=== PATIENT | male | born 1970 | race Caucasian/White ===

== ENCOUNTER 2016-08-28 18:16 | Emergency (ER) | payer MEDICARE ==
--- NOTE | 2016-08-28 18:48 | ERPHSYRPT ---
- History of Present Illness Time Seen by Provider: 08/28/16 18:41 Source: patient, family (n) Exam Limitations: no limitations Patient Subjective Stated Complaint: patient knee having pains where screws were placed has black area raising up looks like screw trying to come out according to patient Triage Nursing Assessment: patietn alert and oriented bruisuing and raised area about nickel size on right knee some swelling noted as well pedal pulses present cap refill immediate Physician History: Pt. had R patellea fx in 11/18 and had screws/wires placed at [facility]. Have had another incident when pt. reinjured R knee and surgery to repair ligament. Past 3-4 days noticed bump to R knee with sharp pain, constant, that is worse with movement or weight bearing. No numbness or tingling distally. No trauma or injury to R knee or leg. Tylenol with minimal relief. 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 Method of Injury: unknown Occurred: days ago (4-5) Quality: constant, burning, throbbing Severity of Pain-Max: moderate Severity of Pain-Current: moderate Lower Extremities Pain: knee: right (bruising noted on R knee) Modifying Factors: Improves With: immobilization (improves), movement (worsens) Associated Symptoms: unable to bear weight Allergies/Adverse Reactions: No Known Drug Allergies Allergy (Verified 05/10/16 14:25) Home Medications: Amlodipine Besylate 5 mg PO DAILY 12/05/14 [History] Aspirin 81 mg PO DAILY 12/05/14 [History] Albuterol Sulfate [Proair Hfa] 1 - 2 puffs IH Q4-6HPRN PRN 11/11/15 [History] Atorvastatin Calcium 80 mg PO DAILY 11/11/15 [History] Bumetanide 1 mg [Bumex 1 mg] 1 mg PO DAILY PRN PRN 11/11/15 [History] Fluoxetine HCl 40 mg PO DAILY 11/11/15 [History] Gabapentin 800 mg PO TID 11/11/15 [History] Hydrochlorothiazide 12.5 mg PO DAILY 11/11/15 [History] Metformin HCl 500 mg [Glucophage 500 MG] 500 mg PO BID 11/11/15 [History] Nitroglycerin 0.4 mg Tablet [Nitrostat 0.4 MG Tablet] 0.4 mg SL UD PRN 01/18 [History] Hx Tetanus, Diphtheria Vaccination/Date Given: Yes Hx Influenza Vaccination/Date Given: Yes Hx Pneumococcal Vaccination/Date Given: Yes Immunizations Up to Date: Yes - Review of Systems Constitutional: No Fever, No Chills Eyes: No Symptoms Ears, Nose, & Throat: No Symptoms Respiratory: No Cough, No Dyspnea Cardiac: No Chest Pain, No Edema, No Syncope Abdominal/Gastrointestinal: No Abdominal Pain, No Nausea, No Vomiting, No Diarrhea Genitourinary Symptoms: No Dysuria Musculoskeletal: Joint Pain, Joint Swelling, No Back Pain, No Neck Pain, No Joint Redness Skin: Other (bruising), No Rash Neurological: No Dizziness, No Focal Weakness, No Sensory Changes Psychological: No Symptoms Endocrine: No Symptoms Hematologic/Lymphatic: No Symptoms Immunological/Allergic: No Symptoms All Other Systems: Reviewed and Negative - Past Medical History Pertinent Past Medical History: Yes Neurological History: Peripheral Neuropathy ENT History: No Pertinent History Cardiac History: Myocardial Infarction ([place]) Respiratory History: Bronchitis Endocrine Medical History: Diabetes Type II Musculoskeletal History: Arthritis GI Medical History: Diverticulitis, Diverticulosis History: No Pertinent History Psycho-Social History: Anxiety, Depression, Other (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 lt arm surgery with skin graft and rt drop foot from post overdose weeks ago. three lumbar spinal surgeries noted - Social History Smoking Status: Current every day smoker How long have you smoked: 33 Exposure to second hand smoke: No Alcohol Use: Chronic Drug Use: none Patient Lives Alone: No Significant Family History: heart disease, diabetes, hypertension - Nursing Vital Signs Nursing Vital Signs: Initial Vital Signs Temperature 98 F Temperature Source Oral Pulse Rate 86 Respiratory Rate 20 Blood Pressure [Right Arm] 138/89 Pain Intensity 5 - Physical Exam General Appearance: alert Eyes, Ears, Nose, Throat Exam: moist mucous membranes Neck Exam: non-tender, supple Cardiovascular/Respiratory Exam: chest non-tender, normal breath sounds, regular rate/rhythm, no respiratory distress Gastrointestinal/Abdominal Exam: non-tender, guarding Back Exam: normal inspection, No vertebral tenderness Knees Exam: right knee: pain (pre-patella area), soft tissue tenderness (above) , swelling (above) Neuro/Tendon Exam: normal sensation, normal motor functions Mental Status Exam: alert, oriented x 3, cooperative Skin Exam: normal color, warm, dry SpO2: 96 Oxygen Delivery: Room Air Ordered Tests: Active Orders 24 hr Category Date Time Status KNEE (3 VIEWS) Stat Exams 08/28/16 18:28 Taken Medication Summary Discontinued Medications Generic Name Dose Route Start Last Admin Trade Name Freq PRN Reason Stop Dose Admin Ketorolac Tromethamine 60 mg 08/28/16 18:58 Toradol 30 Mg Injection IM 08/28/16 18:59 STAT ONE - Progress Progress Note: 08/28/16 19:03 Given Toradol for pain Counseled pt/family regarding: diagnosis, rad results - Departure Time of Disposition: 19:04 Departure Disposition: Home Clinical Impression: Right knee pain Condition: Stable Critical Care Time: No Instructions: Knee Pain Additional Instructions: Rest, ice, elevate, decrease weight bearing to decrease swelling/pain Return for worse pain, swelling, numbness, tingling or any problems. Follow up with your orthopedic surgeon. RX: [facility] Prescriptions: Hydrocodone Bit/Acetaminophen [Sherman 5-325 Tablet] 1 each PO Q6H PRN PRN #8 tablet PRN Reason: Pain
[2016-08-28] MEDS ORDERED: TORAdol 30 mg Injection IM ONE (18:58)
[2016-08-28] MEDS ORDERED: TORAdol 30 mg Injection ONE (19:05)
[2016-08-28 19:22] VITALS: BP 129/70; PULSE 70; O2SAT 99
--- NOTE | 2016-08-28 21:19 | XRAY ---
Indication: Hardware sticking out. Comparison: December 02, 2015. 3 views of the right knee demonstrates stable osteopenia with now 3 intact orthopedic screws, previously 2 screws, fixating healing patellar fracture with supra/infrapatellar ossifications. No other bony, articular, or soft tissue abnormalities.
== END 2016-08-28 19:22 | disposition home or self-care (01) ==
LOC: ED 18:16
DX: M25.561 Pain in right knee (principal)
CPT/HCPCS: 73562; 96372; 99284; J1885

== ENCOUNTER 2016-09-06 16:24 | Emergency (ER) | payer MEDICARE ==
[2016-09-06] MEDS ORDERED: THIAMINE 200 MG/2 ML IM ONE (16:50)
[2016-09-06] MEDS ORDERED: Ativan 2 MG/1 ML VIAL IV ONE ×2 (16:50→20:22)
[2016-09-06] MEDS ORDERED: Lactated Ringers 1,000 ML IV ONE (16:56)
[2016-09-06] MEDS ORDERED: THIAMINE 200 MG/2 ML ONE (16:56)
[2016-09-06] MEDS ORDERED: Ativan 2 MG/1 ML VIAL ONE ×2 (16:56→20:28)
[2016-09-06] MEDS ORDERED: Lactated Ringers 1,000 ML IV SCH (17:00)
--- NOTE | 2016-09-06 17:04 | ERPHSYRPT ---
- History of Present Illness Source: patient Patient Subjective Stated Complaint: states is an alcoholic and drank heavily over the weekend but hasn't drank anything since yesterday. called his pcp and wanted to be admitted to detox. was instructed to come to er. Triage Nursing Assessment: ambulated to room per self without difficulty. skin w/d, color normal, resp nonlabored. Severity: moderate Hx Tetanus, Diphtheria Vaccination/Date Given: No Hx Influenza Vaccination/Date Given: Yes Hx Pneumococcal Vaccination/Date Given: No Immunizations Up to Date: No <SHARYN SHIPMAN - Last Filed: 09/06/16 22:15> <VLAD BATRES - Last Filed: 09/06/16 23:56> - History of Present Illness Time Seen by Provider: 09/06/16 16:46 Physician History: CC: alcohol Hx: 45 y/o male patient of Dr Ann. He has hx of chronic alcohol use. Had not used any alcohol for 8 months. He dranke heavily on Fri, Mon, Sun, Mon this weekend. No alcohol since last night. He has had diarrhea today. He wants to get off drinking. Walked to a friend's house and came to ER after speaking to doctor office. No suicide ideation. Remote but not recent drug use. No fall or injury. No vomiting. No fever or chills. Hx of heart disease, high chol, HTN. (SHARYN SHIPMAN) Allergies/Adverse Reactions: No Known Drug Allergies Allergy (Verified 09/06/16 16:42) Home Medications: Amlodipine Besylate 5 mg PO DAILY 12/05/14 [History] Aspirin 81 mg PO DAILY 12/05/14 [History] Albuterol Sulfate [Proair Hfa] 1 - 2 puffs IH Q4-6HPRN PRN 11/11/15 [History] Atorvastatin Calcium 80 mg PO DAILY 11/11/15 [History] Bumetanide 1 mg [Bumex 1 mg] 1 mg PO DAILY PRN PRN 11/11/15 [History] Fluoxetine HCl 40 mg PO DAILY 11/11/15 [History] Gabapentin 800 mg PO TID 11/11/15 [History] Hydrochlorothiazide 12.5 mg PO DAILY 11/11/15 [History] Metformin HCl 500 mg [Glucophage 500 MG] 500 mg PO BID 11/11/15 [History] Nitroglycerin 0.4 mg Tablet [Nitrostat 0.4 MG Tablet] 0.4 mg SL UD PRN 01/18 [History] - Review of Systems Constitutional: No Fever, No Chills Eyes: No Symptoms Ears, Nose, & Throat: No Symptoms Respiratory: No Cough, No Dyspnea Cardiac: No Chest Pain Abdominal/Gastrointestinal: No Abdominal Pain, No Nausea, No Vomiting, No Diarrhea Genitourinary Symptoms: No Dysuria Musculoskeletal: Back Pain (chronic), Joint Pain (neuropathy), No Neck Pain Neurological: No Dizziness, No Focal Weakness, No Headache Psychological: Alcohol Abuse, Depression, No Drug Abuse, No Suicidal Ideations, No Homicidal Ideations, No Emotional Lability, No Hallucinations All Other Systems: Reviewed and Negative <SHARYN SHIPMAN - Last Filed: 09/06/16 22:15> - Past Medical History Pertinent Past Medical History: Yes Neurological History: Peripheral Neuropathy ENT History: No Pertinent History Cardiac History: Myocardial Infarction ([place]) Respiratory History: Bronchitis Endocrine Medical History: Diabetes Type II Musculoskeletal History: Arthritis GI Medical History: Diverticulitis, Diverticulosis History: No Pertinent History Psycho-Social History: Anxiety, Depression, Other Male Reproductive Disorders: No Pertinent History Other Medical History: Chronic pain syndrome, acoholic - Past Surgical History Past Surgical History: Yes Neuro Surgical History: No Pertinent History Cardiac: Cardiac Catheterization, Cardiac Stent Respiratory: No Pertinent History Gastrointestinal: No Pertinent History Genitourinary: No Pertinent History Musculoskeletal: No Pertinent History Male Surgical History: No Pertinent History Other Surgical History: right hand surgery and 3 previous back surgeries. lt arm surgery with skin graft and rt drop foot from post overdose weeks ago. three lumbar spinal surgeries noted - Social History Smoking Status: Current every day smoker How long have you smoked: 25 Exposure to second hand smoke: No Alcohol Use: Chronic Drug Use: none Patient Lives Alone: Yes Significant Family History: heart disease, diabetes, hypertension <SHARYN SHIPMAN - Last Filed: 09/06/16 22:15> - Physical Exam General Appearance: alert Eye Exam: PERRL/EOMI Ears, Nose, Throat Exam: normal ENT inspection, moist mucous membranes Neck Exam: normal inspection, non-tender, supple Respiratory Exam: normal breath sounds, lungs clear Cardiovascular Exam: regular rate/rhythm, No murmur Gastrointestinal/Abdomen Exam: soft, No tenderness, No distention Back Exam: normal inspection, normal range of motion Extremity Exam: normal range of motion, other (no diabetic sores) Neurologic Exam: alert, oriented x 3, cooperative, billing clinician II-XII nml as tested, sensation nml, No motor deficits Skin Exam: warm, dry, No rash SpO2 Interpretation: normal SpO2: 97 Oxygen Delivery: Room Air <SHARYN SHIPMAN - Last Filed: 09/06/16 22:15> - Course Nursing assessment & vital signs reviewed: Yes EKG Interpreted by Me: RATE (80), Sinus Rhythm, NORMAL AXIS, NORMAL INTERVALS ( QTc 425), Q-wave (septal), NORMAL ST-T <SHARYN SHIPMAN - Last Filed: 09/06/16 22:15> - Progress Counseled pt/family regarding: lab results, diagnosis, need for follow-up <SHARYN SHIPMAN - Last Filed: 09/06/16 22:15> - Progress Discussed with Dr.: Other (DR MARTINEZ(PSYCHIATRIST FROM [facility])([id number]) ACCEPTED PT FOR TRANSFER TO [facility] A DIRECT ADMISSION PER CARIDAD( INTAKE PERSON).) <VLAD BATRES - Last Filed: 09/06/16 23:56> - Progress Progress Note: 09/06/16 18:56 Awaiting HC consultation. Pt stable and ambulatory in ER. 09/06/16 20:27 Spoke to Rowan at [facility]. Behavioralist advised IP BHU admission at a facility for dual diagnosis of depression and alcohol. He has no current sign of DT and only drank for three days. Spoke to Dr Ann who advised transfer for dual diagnosis therapy. No beds at . Called [facility] and will consider transfer acceptance. Pt agrees. 09/06/16 22:15 Pt stable. Await placement. Report to Dr Batres for further care and disposition. (SHARYN SHIPMAN) 09/06/16 23:[address] BATRES [id number]: PERRL; EOMI; PHARYNX PINK; LUNGS CLEAR; NO CARDIAC RUB; ABDOMINAL B.S. NORMAL; NO ANKLE EDEMA; SMALL AMOUNT OF PUS EXPRESSED FROM AN ULCER ON RIGHT KNEE; SCABBED ABRASIONS ON LEFT FOREARM/HAND; ANXIOUS BUT COOPERATIVE. (VLAD BATRES) - Departure Critical Care Time: No <SHARYN SHIPMAN - Last Filed: 09/06/16 22:15> - Departure Time of Disposition: 23:56 Departure Disposition: Transfer ([facility]) Critical Care Time: No <VLAD BATRES - Last Filed: 09/06/16 23:56> - Departure Clinical Impression: Alcoholism /alcohol abuse, Depression, CELLULITIS OF RIGHT KNEE, ANXIETY, DM, ARTHRITIS, PN Condition: Stable Referrals: ROSANA ANN [Primary Care Provider] -
[2016-09-06 17:15] LABS: BASOPHIL % 0.3 % (0.0-0.4); Eosinophil % 1.8 % (0.00-5.0); Granulocytes % 67.4 % (36.0-66.0); INR 1.06 (0.8-3.0); Lymphocytes % 23.4 % (24.0-44.0); Mean Cell Volume 86.5 fl (78-100); Mean Platelet Volume 10.5 fl (6-9.5); Monocytes % 7.1 % (0.0-12.0); PROTIME 11.8 SECONDS (8.83-12.87); Platelet Count 273 K/mm3 (150-450); Red Blood Count 5.24 M/mm3 (4.1-5.6); Red Cell Distribution Width 13.8 % (11.5-14.0); White Blood Count 9.6 K/mm3 (4.0-10.5)
[2016-09-06 17:17] LABS: Collection Type VOID
[2016-09-06 17:18] LABS: COMPLETE URINE MICROSCOPIC? YES
[2016-09-06 17:23] LABS: ALBUMIN 3.9 g/dL (3.4-5.0); ALKALINE PHOSPHATASE 133 U/L (46-116); ANION GAP 15.6 MEQ/L (5-15); BILIRUBIN,TOTAL 0.7 mg/dL (0.2-1.0); BLOOD UREA NITROGEN 14 mg/dL (9-20); CHLORIDE 103 mEq/L (98-107); Carbon Dioxide 24.7 mEq/L (21-32); Glucose 155 MG/DL (70-110); LIPASE 73 U/L (73-393); MAGNESIUM 1.6 mg/dL (1.8-2.4); Potassium 3.9 mEq/L (3.5-5.1); SGOT/AST 31 U/L (15-37); SGPT/ALT 44 U/L (12-78); SODIUM 139 mEq/L (136-145); Total Protein 7.8 gm/dL (6.4-8.2)
[2016-09-06 17:58] LABS: Epithelial Cells FEW /HPF (FEW); Mucus SLIGHT /HPF (NEGATIVE)
[2016-09-06] MEDS ORDERED: TORAdol 30 mg Injection IV ONE (23:44)
[2016-09-06] MEDS ORDERED: CLINDAMYCIN-D5W 900 MG/50 ML*** 50 ML IV ONE ×2 (23:44)
[2016-09-06] MEDS ORDERED: VALIUM 10 MG/2 ML SYRINGE IV ONE (23:44)
[2016-09-06] MEDS ORDERED: TORAdol 30 mg Injection ONE (23:46)
[2016-09-06] MEDS ORDERED: VALIUM 10 MG/2 ML SYRINGE ONE (23:47)
[2016-09-07 09:35] VITALS: BP 135/62; PULSE 80; O2SAT 97
[2016-09-07] MEDS ORDERED: MAG-OX 400 PO SCH (10:00)
== END 2016-09-07 09:33 | disposition short-term general hospital (02) ==
LOC: ED 16:24
DX: F10.10 Alcohol abuse, uncomplicated (principal); F32.9 Major depressive disorder, single episode, unspecified; L03.115 Cellulitis of right lower limb; F41.9 Anxiety disorder, unspecified; E11.9 Type 2 diabetes mellitus without complications; M19.90 Unspecified osteoarthritis, unspecified site; G62.9 Polyneuropathy, unspecified; Z79.899 Other long term (current) drug therapy; Z79.84 Long term (current) use of oral hypoglycemic drugs
CPT/HCPCS: 36000; 36415; 80053; 80307; 80320; 81000; 83690; 83735; 83986; 85025; 85610; 87040; 87070; 87077; 87186; 93005; 93041; 96360; 96361; 96365; 96372; 96374; 96375; 96376; 99285; J1885; J2060; J3360; Q3014

== ENCOUNTER 2016-10-23 12:52 | Emergency (ER) | payer MEDICARE ==
[2016-10-23 13:09] VITALS: BP 131/85; PULSE 88; O2SAT 96
--- NOTE | 2016-10-23 13:12 | ERPHSYRPT ---
- History of Present Illness Time Seen by Provider: 10/23/16 12:55 Source: patient Physician History: CC: right knee pain Hx: 46 y/o patient with patellar fx fixed by Dr Evangelista last December. Subsequently it was draining and Dr Ann put him on abtx. Now there is more pain and he noted a wire sticking out of the incision. No fever or redness. No new injury. Worried about the wire so came to ER. Lower Extremities Pain: knee: right Allergies/Adverse Reactions: No Known Drug Allergies Allergy (Verified 10/23/16 13:09) Home Medications: Amlodipine Besylate 5 mg PO DAILY 12/05/14 [History] Aspirin 81 mg PO DAILY 12/05/14 [History] Albuterol Sulfate [Proair Hfa] 1 - 2 puffs IH Q4-6HPRN PRN 11/11/15 [History] Atorvastatin Calcium 80 mg PO DAILY 11/11/15 [History] Bumetanide 1 mg [Bumex 1 mg] 1 mg PO DAILY PRN PRN 11/11/15 [History] Gabapentin 800 mg PO TID 11/11/15 [History] Hydrochlorothiazide 12.5 mg PO DAILY 11/11/15 [History] Metformin HCl 500 mg [Glucophage 500 MG] 500 mg PO BID 11/11/15 [History] Nitroglycerin 0.4 mg Tablet [Nitrostat 0.4 MG Tablet] 0.4 mg SL UD PRN 01/18 [History] Hx Tetanus, Diphtheria Vaccination/Date Given: No Hx Influenza Vaccination/Date Given: Yes Hx Pneumococcal Vaccination/Date Given: No - Review of Systems Constitutional: No Fever, No Chills Respiratory: No Dyspnea Cardiac: No Chest Pain Abdominal/Gastrointestinal: No Abdominal Pain, No Nausea, No Vomiting Musculoskeletal: Joint Pain (right knee), No Back Pain, No Neck Pain Skin: No Rash Neurological: No Focal Weakness, No Headache, No Parasthesia All Other Systems: Reviewed and Negative - Past Medical History Pertinent Past Medical History: Yes Neurological History: Peripheral Neuropathy ENT History: No Pertinent History Cardiac History: Myocardial Infarction ([place]) Respiratory History: Bronchitis Endocrine Medical History: Diabetes Type II Musculoskeletal History: Arthritis GI Medical History: Diverticulitis, Diverticulosis History: No Pertinent History Psycho-Social History: Anxiety, Depression, Other Male Reproductive Disorders: No Pertinent History Other Medical History: Chronic pain syndrome, acoholic - Past Surgical History Past Surgical History: Yes Neuro Surgical History: No Pertinent History Cardiac: Cardiac Catheterization, Cardiac Stent Respiratory: No Pertinent History Gastrointestinal: No Pertinent History Genitourinary: No Pertinent History Musculoskeletal: No Pertinent History Male Surgical History: No Pertinent History Other Surgical History: right hand surgery and 3 previous back surgeries. lt arm surgery with skin graft and rt drop foot from post overdose weeks ago. three lumbar spinal surgeries noted - Social History Smoking Status: Current every day smoker How long have you smoked: 25 Exposure to second hand smoke: No Alcohol Use: Chronic Drug Use: none Patient Lives Alone: Yes Significant Family History: heart disease, diabetes, hypertension - Nursing Vital Signs Nursing Vital Signs: Initial Vital Signs Temperature 98.2 F Temperature Source Oral Pulse Rate 88 Respiratory Rate 16 Blood Pressure [] 131/85 Pain Intensity 5 - Physical Exam General Appearance: alert Eyes, Ears, Nose, Throat Exam: moist mucous membranes Neck Exam: supple Cardiovascular/Respiratory Exam: regular rate/rhythm Gastrointestinal/Abdominal Exam: non-tender, soft Neuro/Tendon Exam: normal sensation, normal motor functions Mental Status Exam: alert, oriented x 3, cooperative Skin Exam: warm, dry Comments: right knee has no erythema or swelling. There is healed anterior incision. There is a wire or suture protruding from the incision. No drng or sign of acute infection. - Radiology Exams right knee X-ray Interpretation: Reviewed by me (patellar hardware intact) Ordered Tests: Active Orders 24 hr Category Date Time Status Wound Care STAT Care 10/23/16 14:00 Active KNEE (3 VIEWS) Stat Exams 10/23/16 13:06 Taken BLOOD CULTURE Stat Lab 10/23/16 13:18 Received BMP Stat Lab 10/23/16 13:15 Completed CBC W DIFF Stat Lab 10/23/16 13:15 Completed Erythrocyte Sedimentation Rate Stat Lab 10/23/16 13:15 Completed Medication Summary Discontinued Medications Generic Name Dose Route Start Last Admin Trade Name Freq PRN Reason Stop Dose Admin Ibuprofen 600 mg 10/23/16 13:14 10/23/16 13:17 Motrin 600 Mg PO 10/23/16 13:15 600 mg STAT ONE Administration Ibuprofen Confirm 10/23/16 13:16 Motrin 600 Mg Administered 10/23/16 13:17 Dose 600 mg .ROUTE .STK-MED ONE Lab/Rad Data: Laboratory Result Diagrams 10/23/16 13:15 10/23/16 13:15 Laboratory Results 10/23/16 10/23/16 Range/Units 13:15 13:15 WBC 6.2 (4.0-10.5) K/mm3 RBC 4.94 (4.1-5.6) M/mm3 Hgb 14.8 (12.5-18.0) gm/dl Hct 43.9 (42-50) % MCV 88.9 (78-100) fl MCH 30.0 (26-32) pg MCHC 33.7 (32-36) g/dl RDW 13.2 (11.5-14.0) % Plt Count 281 (150-450) K/mm3 MPV 10.6 H (6-9.5) fl Gran % 53.5 (36.0-66.0) % Lymphocytes % 33.7 (24.0-44.0) % Monocytes % 9.0 (0.0-12.0) % Eosinophils % 3.0 (0.00-5.0) % Basophils % 0.8 (0.0-0.4) % Basophils # 0.05 (0-0.4) ESR 9 (0-15) mm/hr Sodium 134 L (136-145) mEq/L Potassium 4.0 (3.5-5.1) mEq/L Chloride 100 (98-107) mEq/L Carbon Dioxide 27.1 (21-32) mEq/L Anion Gap 11.2 (5-15) MEQ/L BUN 17 (9-20) mg/dL Creatinine 0.86 (0.55-1.30) mg/dl Estimated GFR > 60 ML/MIN Glucose 239 H (70-110) MG/DL Calcium 9.4 (8.5-10.1) mg/dL - Progress Progress Note: 10/23/16 14:20 He has chronic diabetic. Will Rx keflex and advise close follow up with Dr Evangelista tomorrow. Counseled pt/family regarding: diagnosis, need for follow-up - Departure Time of Disposition: 14:20 Departure Disposition: Home Clinical Impression: suture protrusion right knee wound Condition: Stable Critical Care Time: No Referrals: ROSANA ANN [Primary Care Provider] - ENRIQUE EVANGELISTA Jr., MD [NON-STAFF PHY W/O PRIVILEGES] - Instructions: Care for a Surgical Wound Additional Instructions: Keep wound clean and dry. Rx keflex. Rx motrin=ibuprofen. Follow up with Dr Evangelista tomorrow. Prescriptions: Ibuprofen 600 mg PO Q6H PRN PRN #20 tablet PRN Reason: Pain Cephalexin Mh 500 mg [Keflex 500 mg] 1 cap PO QID #28 capsule
[2016-10-23] MEDS ORDERED: MOTRIN 600 MG PO ONE (13:14)
[2016-10-23] MEDS ORDERED: MOTRIN 600 MG ONE (13:16)
[2016-10-23 13:40] LABS: BASOPHIL % 0.8 % (0.0-0.4); Granulocytes % 53.5 % (36.0-66.0); Lymphocytes % 33.7 % (24.0-44.0); Mean Cell Volume 88.9 fl (78-100); Mean Platelet Volume 10.6 fl (6-9.5); Platelet Count 281 K/mm3 (150-450); Red Blood Count 4.94 M/mm3 (4.1-5.6); Red Cell Distribution Width 13.2 % (11.5-14.0); White Blood Count 6.2 K/mm3 (4.0-10.5)
[2016-10-23 13:57] LABS: ANION GAP 11.2 MEQ/L (5-15); BLOOD UREA NITROGEN 17 mg/dL (9-20); CHLORIDE 100 mEq/L (98-107); Carbon Dioxide 27.1 mEq/L (21-32); Glucose 239 MG/DL (70-110); SODIUM 134 mEq/L (136-145)
[2016-10-23 14:16] LABS: Erythrocyte Sedimentation Rate 9 mm/hr (0-15)
--- NOTE | 2016-10-23 20:56 | XRAY ---
Indication: Hardware sticking out. Comparison: December 02, 2015. 3 views of the right knee unchanged again demonstrating osteopenia with 3 intact screws fixating healing patellar fracture with supra/infrapatellar ossifications and prepatellar soft tissue swelling. No new bony, articular, or soft tissue abnormalities.
== END 2016-10-23 14:51 | disposition home or self-care (01) ==
LOC: ED 12:52
DX: T81.31XA Disruption of external operation (surgical) wound, not elsewhere classified, initial encounter (principal); M25.561 Pain in right knee
CPT/HCPCS: 36415; 73562; 80048; 85025; 85652; 87040; 99283; A9270-GY

== ENCOUNTER 2016-12-09 15:15 | Emergency (ER) | payer MEDICARE ==
--- NOTE | 2016-12-09 15:43 | ERPHSYRPT ---
- History of Present Illness Time Seen by Provider: 12/09/16 15:37 Source: patient Exam Limitations: no limitations Patient Subjective Stated Complaint: PT REPORTS STEPPING ON GLASS DANIELLE 1500 YESTERDAY-REPORTS ITCHING ET PAIN TO LEFT FOOT Triage Nursing Assessment: PT PINK WARM ET AGU-COMCS-[id number] TO ED ROOM- SUPERFICIAL ABRASION ET SCRATCH REYNOSO NOTED TO TOP OF FOOT-LAC NOTED TO BOTTOM OF FOOT-DANIELLE 1 IN-NO BLEEDING AT THIS TIME Physician History: The patient is a 46-year-old male who complains of stepping on a piece of glass and cutting the forefoot of his left foot 24 hours ago. He thinks he got all the glass out. It has been hurting more as today has gone on. He is tried 400 mg of ibuprofen earlier today without relief. He denies numbness or tingling. His past medical history is significant for hypertension, diabetes, COPD, methadone abuse. His tetanus vaccination is within the last 5 years. Timing/Duration: yesterday, hour(s) (24) Quality: painful Severity: moderate Location: feet (left foot) Possible Causes: other (glass) Allergies/Adverse Reactions: No Known Drug Allergies Allergy (Verified 12/09/16 15:23) Home Medications: Amlodipine Besylate 5 mg PO DAILY 12/05/14 [History] Aspirin 81 mg PO DAILY 12/05/14 [History] Albuterol Sulfate [Proair Hfa] 1 - 2 puffs IH Q4-6HPRN PRN 11/11/15 [History] Atorvastatin Calcium 80 mg PO DAILY 11/11/15 [History] Bumetanide 1 mg [Bumex 1 mg] 1 mg PO DAILY PRN PRN 11/11/15 [History] Gabapentin 800 mg PO TID 11/11/15 [History] Hydrochlorothiazide 12.5 mg PO DAILY 11/11/15 [History] Metformin HCl 500 mg [Glucophage 500 MG] 500 mg PO BID 11/11/15 [History] Nitroglycerin 0.4 mg Tablet [Nitrostat 0.4 MG Tablet] 0.4 mg SL UD PRN 01/18 [History] Hx Tetanus, Diphtheria Vaccination/Date Given: Yes Hx Influenza Vaccination/Date Given: Yes Hx Pneumococcal Vaccination/Date Given: No Immunizations Up to Date: Yes - Review of Systems Constitutional: No Fever, No Chills Eyes: No Symptoms Ears, Nose, & Throat: No Symptoms Respiratory: No Cough, No Dyspnea Cardiac: No Symptoms Abdominal/Gastrointestinal: No Abdominal Pain, No Nausea, No Vomiting, No Diarrhea Genitourinary Symptoms: No Dysuria Musculoskeletal: No Back Pain, No Neck Pain Skin: Other (lac) Neurological: No Dizziness, No Focal Weakness, No Sensory Changes Psychological: No Symptoms Endocrine: No Symptoms Hematologic/Lymphatic: No Symptoms Immunological/Allergic: No Symptoms All Other Systems: Reviewed and Negative - Past Medical History Pertinent Past Medical History: Yes Neurological History: Peripheral Neuropathy ENT History: No Pertinent History Cardiac History: Myocardial Infarction ([place]) Respiratory History: Bronchitis Endocrine Medical History: Diabetes Type II Musculoskeletal History: Arthritis GI Medical History: Diverticulitis, Diverticulosis History: No Pertinent History Psycho-Social History: Anxiety, Depression, Other Male Reproductive Disorders: No Pertinent History Other Medical History: Chronic pain syndrome, acoholic - Past Surgical History Past Surgical History: Yes Neuro Surgical History: No Pertinent History Cardiac: Cardiac Catheterization, Cardiac Stent Respiratory: No Pertinent History Gastrointestinal: No Pertinent History Genitourinary: No Pertinent History Musculoskeletal: No Pertinent History Male Surgical History: No Pertinent History Other Surgical History: right hand surgery and 3 previous back surgeries. lt arm surgery with skin graft and rt drop foot from post overdose weeks ago. three lumbar spinal surgeries noted - Social History Smoking Status: Current every day smoker How long have you smoked: 25 Exposure to second hand smoke: No Alcohol Use: Chronic Drug Use: none Patient Lives Alone: Yes Significant Family History: heart disease, diabetes, hypertension - Nursing Vital Signs Nursing Vital Signs: Initial Vital Signs Temperature 98.6 F Temperature Source Oral Pulse Rate 110 Respiratory Rate 18 Blood Pressure [Right Arm] 157/90 Pain Intensity 8 - Physical Exam General Appearance: no apparent distress, alert Eye Exam: PERRL/EOMI, eyes nml inspection Ears, Nose, Throat Exam: normal ENT inspection, pharynx normal, moist mucous membranes Neck Exam: normal inspection, non-tender, supple, full range of motion Respiratory Exam: normal breath sounds, lungs clear, No respiratory distress Cardiovascular Exam: regular rate/rhythm, normal heart sounds Gastrointestinal/Abdomen Exam: soft, mass, No tenderness Rectal Exam: not done Back Exam: normal inspection, normal range of motion, No CVA tenderness, No vertebral tenderness Extremity Exam: normal inspection, normal range of motion Neurologic Exam: alert, oriented x 3, cooperative, normal mood/affect, sensation nml, No motor deficits Skin Exam: laceration (Examination of the forefoot of the left foot shows a jagged linear laceration of approximately 2 cm without any obvious foreign body. There is minimal swelling without erythema. There is tenderness to palpation.) SpO2 Interpretation: normal SpO2: 96 Oxygen Delivery: Room Air - Radiology Exams Left Foot X-ray Interpretation: Interpreted by me, Negative (NO radio-opaque FB seen) Ordered Tests: Active Orders 24 hr Category Date Time Status FOOT (MINIMUM 3 VIEWS) Stat Exams 12/09/16 15:49 Taken Medication Summary Discontinued Medications Generic Name Dose Route Start Last Admin Trade Name Kennyq PRN Reason Stop Dose Admin Ketorolac Tromethamine 60 mg 12/09/16 15:48 12/09/16 15:56 Toradol 30 Mg Injection IM 12/09/16 15:49 60 mg STAT ONE Administration Ketorolac Tromethamine Confirm 12/09/16 15:54 Toradol 30 Mg Injection Administered 12/09/16 15:55 Dose 60 mg .ROUTE .[employer] ONE - Progress Progress: unchanged Counseled pt/family regarding: diagnosis - Departure Time of Disposition: 16:14 Departure Disposition: Home Clinical Impression: Left foot pain Condition: Stable Critical Care Time: No Instructions: Care for a Laceration After Repair Additional Instructions: You have a cut to the pad of the left foot that is causing the pain. No foreign body was seen. You were given Toradol 60 mg IM in the ER. Take naproxen 500 mg twice a day as needed. Take Augmentin one tablet twice a day for 10 days for possible infection. Cut a hole in the center of thick moleskin. Place the moleskin so that the laceration is in the center of the whole of the moleskin. This would take the pressure off of the laceration when you walk. Follow-up as needed. Prescriptions: Amoxicillin/Potassium Clav [Augmentin 875-125 Tablet] 875 mg PO BID #20 tablet Naproxen 500 mg PO BID PRN #30 tablet.
[2016-12-09] MEDS ORDERED: TORAdol 30 mg Injection IM ONE (15:48)
[2016-12-09] MEDS ORDERED: TORAdol 30 mg Injection ONE (15:54)
[2016-12-09 16:28] VITALS: BP 142/62; PULSE 89; O2SAT 97
--- NOTE | 2016-12-09 22:33 | XRAY ---
Indication: Stepped on glass. Comparison: September 22, 2014. 3 nonweightbearing views of the left foot negative for radiopaque foreign body. No new/acute bony, articular, or soft tissue abnormalities.
== END 2016-12-09 16:27 | disposition home or self-care (01) ==
LOC: ED 15:15
DX: M79.672 Pain in left foot (principal); W25.XXXA Contact with sharp glass, initial encounter; Z79.899 Other long term (current) drug therapy; I25.2 Old myocardial infarction; E11.9 Type 2 diabetes mellitus without complications
CPT/HCPCS: 73630; 96372; 99283; 99284; J1885

== ENCOUNTER 2017-06-13 18:31 | Emergency (ER) | payer MEDICARE ==
[2017-06-13] MEDS ORDERED: NORCO 5/325 MG PO ONE (19:27)
[2017-06-13] MEDS ORDERED: NORCO 5/325 MG ONE (19:33)
--- NOTE | 2017-06-13 19:37 | ERPHSYRPT ---
- History of Present Illness Time Seen by Provider: 06/13/17 19:03 Source: patient Exam Limitations: no limitations Patient Subjective Stated Complaint: fell today about 4 today, and laid on floor. pt had an epidsode today that resembles a seizure, [facility] and dx with stress, before he hurt hes knee. Triage Nursing Assessment: pt arrived per car, and pt wanted help out of car but would not stop smoking to get help after about 5 minutes he put out cig. helped in wc, pt cursing and yelling in pain. pt has swelling to knee that is normal, and has scar from surgery .pt alert, resp easy , skin w/d Physician History: PT HAD 3 EPISODES OF SHAKING, DIZZINESS AND DIAPHORESIS WHICH STARTED 8.5 HOURS AGO LASTING FROM 5 TO 15 MINUTES PER EPISODE WITHOUT LOC. PT WAS SEEN AT [facility] ER FOR THIS TODAY AND WAS DIAGNOSED STRESS AFTER A NORMAL EKG PER PT. PT STATES ABOUT 2.5 HOURS AGO AT HOME HE FELL OFF HIS BED HITTING THE BACK OF HIS HEAD, RIGHT ELBOW, RIGHT FOREARM, RIGHT KNEE AND RIGHT HIP WITH RESULTANT PAIN IN THOSE AREAS. PT DENIES FEVER, NAUSEA, VOMITING, ABDOMINAL PAIN , CHEST PAIN, SHORTNESS OF AIR AND HX OF SEIZURES. Allergies/Adverse Reactions: No Known Drug Allergies Allergy (Verified 06/13/17 18:42) Home Medications: Amlodipine Besylate 5 mg PO DAILY 12/05/14 [History] Aspirin 81 mg PO DAILY 12/05/14 [History] Albuterol Sulfate [Proair Hfa] 1 - 2 puffs IH Q4-6HPRN PRN 11/11/15 [History] Atorvastatin Calcium 80 mg PO DAILY 11/11/15 [History] Bumetanide 1 mg [Bumex 1 mg] 1 mg PO DAILY PRN PRN 11/11/15 [History] Hydrochlorothiazide 12.5 mg PO DAILY 11/11/15 [History] Metformin HCl 500 mg [Glucophage 500 MG] 500 mg PO BID 11/11/15 [History] Nitroglycerin 0.4 mg Tablet [Nitrostat 0.4 MG Tablet] 0.4 mg SL UD PRN 01/18 [History] Hx Tetanus, Diphtheria Vaccination/Date Given: Yes Hx Influenza Vaccination/Date Given: No Hx Pneumococcal Vaccination/Date Given: No - Review of Systems Constitutional: No Fever Respiratory: No Dyspnea Cardiac: No Chest Pain Abdominal/Gastrointestinal: No Abdominal Pain, No Nausea, No Vomiting Musculoskeletal: Other (PAIN IN RIGHT ELBOW, HIP, FOREARM, KNEE.), No Neck Pain Neurological: Dizziness, Headache Endocrine: Excessive Sweating All Other Systems: Reviewed and Negative - Past Medical History Pertinent Past Medical History: Yes Neurological History: Peripheral Neuropathy ENT History: No Pertinent History Cardiac History: Myocardial Infarction ([place]) Respiratory History: Bronchitis Endocrine Medical History: Diabetes Type II Musculoskeletal History: Arthritis GI Medical History: Diverticulitis, Diverticulosis History: No Pertinent History Psycho-Social History: Anxiety, Depression, Other Male Reproductive Disorders: No Pertinent History Other Medical History: Chronic pain syndrome, acoholic - Past Surgical History Past Surgical History: Yes Neuro Surgical History: No Pertinent History Cardiac: Cardiac Catheterization, Cardiac Stent Respiratory: No Pertinent History Gastrointestinal: No Pertinent History Genitourinary: No Pertinent History Musculoskeletal: No Pertinent History Male Surgical History: No Pertinent History Other Surgical History: right hand surgery and 3 previous back surgeries. lt arm surgery with skin graft and rt drop foot from post overdose weeks ago. three lumbar spinal surgeries noted - Social History Smoking Status: Current every day smoker How long have you smoked: 25 Exposure to second hand smoke: Yes Alcohol Use: Chronic Drug Use: none Patient Lives Alone: Yes Significant Family History: heart disease, diabetes, hypertension - Nursing Vital Signs Nursing Vital Signs: Initial Vital Signs Pulse Rate 80 06/13/17 18:33 Respiratory Rate 97 H 06/13/17 18:33 Blood Pressure 117/83 06/13/17 18:33 O2 Sat by Pulse Oximetry 97 06/13/17 18:33 Pain Scale Pain Intensity 4 - Physical Exam General Appearance: alert Eye Exam: PERRL/EOMI Ears, Nose, Throat Exam: pharynx normal, moist mucous membranes, other (CERUMEN OCCLUSION OF RIGHT EAR) Neck Exam: normal inspection, non-tender Respiratory Exam: lungs clear Cardiovascular Exam: normal heart sounds Gastrointestinal/Abdomen Exam: soft, normal bowel sounds Back Exam: normal inspection, No vertebral tenderness Extremity Exam: other (MILD TENDERNESS AND DECREASED ROM OF THE RIGHT ELBOW, RIGHT HIP, RIGHT KNEE AND RIGHT FOREARM. AMPUTATION OF THE DISTAL PHALANX OF THE LEFT MIDDLE FINGER AND DEFORMITY OF THE VOLAR ASPECT OF THE LEFT FOREARM( BOTH OLD).) Neurologic Exam: alert, cooperative, sensory deficit (RIGHT FOOT(ONGOING).) Skin Exam: abrasion (2 CM LINEAR ABRASION OF RIGHT MID-FOREARM), ecchymosis (1 CM DIAMETER TENDER ECCHYMOSIS OF THE RIGHT INGUINAL AREA.) SpO2 Interpretation: normal SpO2: 97 Oxygen Delivery: Room Air - Course Nursing assessment & vital signs reviewed: Yes - CT Exams Head CT Interpretation: Discussed w/radiologist (NEGATIVE CT-HEAD.) Ordered Tests: Active Orders 24 hr Category Date Time Status IV Insertion STAT Care 06/13/17 21:28 Active FEMUR Stat Exams 06/13/17 19:25 Taken FOREARM Stat Exams 06/13/17 19:24 Taken HEAD WITHOUT CONTRAST [CT] Stat Exams 06/13/17 19:26 Taken KNEE (1 OR 2 VIEW) Stat Exams 06/13/17 19:24 Taken PELVIS (1 OR 2 VIEWS) Stat Exams 06/13/17 19:25 Taken AMYLASE Stat Lab 06/13/17 19:45 Completed CBC W DIFF Stat Lab 06/13/17 19:45 Completed CMP Stat Lab 06/13/17 19:45 Completed LIPASE Stat Lab 06/13/17 19:45 Completed MAGNESIUM Stat Lab 06/13/17 19:45 Completed Karnes Screen Stat Lab 06/13/17 19:45 Completed UA W/RFX UR CULTURE Stat Lab 06/13/17 19:50 Completed Urine Triage Profile Stat Lab 06/13/17 19:50 Completed Medication Summary Generic Name Dose Route Start Last Admin Trade Name Freq PRN Reason Stop Dose Admin Sodium Chloride 1,000 mls @ 100 mls/hr 06/13/17 21:30 Sodium Chloride 0.9% 1000 Ml IV 07/13/17 21:29 .Q10H LIZ Discontinued Medications Generic Name Dose Route Start Last Admin Trade Name Freq PRN Reason Stop Dose Admin Hydrocodone Bitart/Acetaminophen 2 tab 06/13/17 19:27 06/13/17 19:34 Rake 5/325 Mg PO 06/13/17 19:28 2 tab STAT ONE Administration Hydrocodone Bitart/Acetaminophen Confirm 06/13/17 19:33 Rake 5/325 Mg Administered 06/13/17 19:34 Dose 2 tab .ROUTE .STK-MED ONE Fentanyl Citrate 50 mcg 06/13/17 21:28 Sublimaze 100 Mcg/2 Ml IV 06/13/17 21:29 STAT ONE Fentanyl Citrate Confirm 06/13/17 21:32 Sublimaze 100 Mcg/2 Ml Administered 06/13/17 21:33 Dose 100 mcg .ROUTE .STK-MED ONE Promethazine HCl 12.5 mg 06/13/17 21:28 Phenergan 25 Mg Inj IV 06/13/17 21:29 STAT ONE Promethazine HCl Confirm 06/13/17 21:32 Phenergan 25 Mg Inj Administered 06/13/17 21:33 Dose 25 mg .ROUTE .STK-MED ONE Lab/Rad Data: Laboratory Result Diagrams 06/13/17 19:45 06/13/17 19:45 Laboratory Results 06/13/17 06/13/17 06/13/17 Range/Units 19:50 19:50 19:45 WBC (4.0-10.5) K/mm3 RBC (4.1-5.6) M/mm3 Hgb (12.5-18.0) gm/dl Hct (42-50) % MCV (78-100) fl MCH (26-32) pg MCHC (32-36) g/dl RDW (11.5-14.0) % Plt Count (150-450) K/mm3 MPV (6-9.5) fl Gran % (36.0-66.0) % Lymphocytes % (24.0-44.0) % Monocytes % (0.0-12.0) % Eosinophils % (0.00-5.0) % Basophils % (0.0-0.4) % Basophils # (0-0.4) Sodium (136-145) mEq/L Potassium (3.5-5.1) mEq/L Chloride (98-107) mEq/L Carbon Dioxide (21-32) mEq/L Anion Gap (5-15) MEQ/L BUN (9-20) mg/dL Creatinine (0.55-1.30) mg/dl Estimated GFR ML/MIN Glucose (70-110) MG/DL Calcium (8.5-10.1) mg/dL Magnesium (1.8-2.4) mg/dL Total Bilirubin (0.2-1.0) mg/dL AST (15-37) U/L ALT (12-78) U/L Alkaline Phosphatase (46-116) U/L Serum Total Protein (6.4-8.2) gm/dL Albumin (3.4-5.0) g/dL Amylase (25-115) U/L Lipase (73-393) U/L Ur Collection Type CLEAN CATCH Urine Color YELLOW (YELLOW) Urine Appearance CLEAR (CLEAR) Urine pH 5.0 (5-6) Ur Specific Stuart 1.030 (1.005-1.025) Urine Protein NEGATIVE (Negative) Urine Ketones LARGE (NEGATIVE) Urine Blood NEGATIVE (0-5) David/ul Urine Nitrite NEGATIVE (NEGATIVE) Urine Bilirubin NEGATIVE (NEGATIVE) Urine Urobilinogen NORMAL (0-1) mg/dL Ur Leukocyte Esterase NEGATIVE (NEGATIVE) Urine Culture Reflexed NO (NO) Urine Glucose 250 (NEGATIVE) mg/dL Urine Opiates Level POS. (NEGATIVE) Ur Methadone NEG. (NEGATIVE) Urine Barbiturates NEG. (NEGATIVE) Ur Phencyclidine (PCP) NEG. (NEGATIVE) Urine Amphetamine POS. (NEGATIVE) U Benzodiazepine Level POS. (NEGATIVE) Urine Cocaine NEG. (NEGATIVE) Urine Marijuana (THC) NEG. (NEGATIVE) Monoscreen POSITIVE (Negative) Specimen Received 06/13/17194406/13/17 06/13/17 Range/Units 19:45 19:45 WBC 10.8 H (4.0-10.5) K/mm3 RBC 4.56 (4.1-5.6) M/mm3 Hgb 13.7 (12.5-18.0) gm/dl Hct 39.9 L (42-50) % MCV 87.5 (78-100) fl MCH 30.0 (26-32) pg MCHC 34.3 (32-36) g/dl RDW 12.4 (11.5-14.0) % Plt Count 245 (150-450) K/mm3 MPV 10.4 H (6-9.5) fl Gran % 77.5 H (36.0-66.0) % Lymphocytes % 11.6 L (24.0-44.0) % Monocytes % 9.9 (0.0-12.0) % Eosinophils % 0.8 (0.00-5.0) % Basophils % 0.2 (0.0-0.4) % Basophils # 0.02 (0-0.4) Sodium 138 (136-145) mEq/L Potassium 3.6 (3.5-5.1) mEq/L Chloride 101 (98-107) mEq/L Carbon Dioxide 22.7 (21-32) mEq/L Anion Gap 18.0 H (5-15) MEQ/L BUN 24 H (9-20) mg/dL Creatinine 0.88 (0.55-1.30) mg/dl Estimated GFR > 60 ML/MIN Glucose 195 H (70-110) MG/DL Calcium 8.9 (8.5-10.1) mg/dL Magnesium 1.8 (1.8-2.4) mg/dL Total Bilirubin 0.90 (0.2-1.0) mg/dL AST 45 H (15-37) U/L ALT 38 (12-78) U/L Alkaline Phosphatase 102 (46-116) U/L Serum Total Protein 7.3 (6.4-8.2) gm/dL Albumin 3.6 (3.4-5.0) g/dL Amylase 26 (25-115) U/L Lipase 57 L (73-393) U/L Ur Collection Type Urine Color (YELLOW) Urine Appearance (CLEAR) Urine pH (5-6) Ur Specific Stuart (1.005-1.025) Urine Protein (Negative) Urine Ketones (NEGATIVE) Urine Blood (0-5) David/ul Urine Nitrite (NEGATIVE) Urine Bilirubin (NEGATIVE) Urine Urobilinogen (0-1) mg/dL Ur Leukocyte Esterase (NEGATIVE) Urine Culture Reflexed (NO) Urine Glucose (NEGATIVE) mg/dL Urine Opiates Level (NEGATIVE) Ur Methadone (NEGATIVE) Urine Barbiturates (NEGATIVE) Ur Phencyclidine (PCP) (NEGATIVE) Urine Amphetamine (NEGATIVE) U Benzodiazepine Level (NEGATIVE) Urine Cocaine (NEGATIVE) Urine Marijuana (THC) (NEGATIVE) Monoscreen (Negative) Specimen Received - Progress Discussed with : Other (SPOKE WITH DR WILCOX(HOSPITALIST)([id number]) WHO ACCEPTED PT FOR TRANSFER TO [facility] A DIRECT ADMISSION. SPOKE WITH DR CHADWICK( ORTHOPEDIC SURGEON)([id number]) WHO WILL CONSULT ON PT AT [facility].) - Departure Time of Disposition: 21:41 Departure Disposition: Home Clinical Impression: AMPHETAMINE USE, CONTUSION OF RIGHT ELBOW, CONTUSION OF RIGHT KNEE, ABRASION OF RIGHT FOREARM, INTERTROCHANTERIC RIGHT HIP FRACTURE, MONONUCLEOSIS, ARTHRITIS , ANXIETY, DEPRESSION, DM Condition: Stable Critical Care Time: No Referrals: ROSANA MURRIETA [Primary Care Provider] -
[2017-06-13 19:50] LABS: BASOPHIL % 0.2 % (0.0-0.4); Basophil (Absolute #) 0.02 (0-0.4); Eosinophil % 0.8 % (0.00-5.0); Eosinophil (Absolute #) 0.09 (0-0.5); Granulocyte Absolute (ANC) 8.39 (1.4-6.9); Granulocytes % 77.5 % (36.0-66.0); Hematocrit 39.9 % (42-50); Hemoglobin 13.7 gm/dl (12.5-18.0); Lymphocyte (Absolute #) 1.26 (1.0-4.6); Lymphocytes % 11.6 % (24.0-44.0); Mean Cell Volume 87.5 fl (78-100); Mean Corpuscular Hgb Concent. 34.3 g/dl (32-36); Mean Platelet Volume 10.4 fl (6-9.5); Monocyte (Absolute #) 1.07 (0.0-1.3); Monocytes % 9.9 % (0.0-12.0); Platelet Count 245 K/mm3 (150-450); Red Blood Count 4.56 M/mm3 (4.1-5.6); Red Cell Distribution Width 12.4 % (11.5-14.0); White Blood Count 10.8 K/mm3 (4.0-10.5)
[2017-06-13 20:02] LABS: Appearance CLEAR (CLEAR); Bilirubin NEGATIVE (NEGATIVE); Blood NEGATIVE Ery/ul (0-5); Glucose 250 mg/dL (NEGATIVE); Ketones LARGE (NEGATIVE); Leukocyte Esterase NEGATIVE (NEGATIVE); Nitrite NEGATIVE (NEGATIVE); Protein,Urine Dip NEGATIVE (Negative); Urobilinogen NORMAL mg/dL (0-1)
[2017-06-13 20:06] LABS: Amphetamine,Urine POS. (NEGATIVE); Barbiturate,Urine NEG. (NEGATIVE); Benzodiazepine,Urine POS. (NEGATIVE); Cocaine,Urine NEG. (NEGATIVE); Methadone,Urine NEG. (NEGATIVE); Opiate,Urine POS. (NEGATIVE); PCP,Urine NEG. (NEGATIVE); THC,Urine NEG. (NEGATIVE)
[2017-06-13 20:15] LABS: ALBUMIN 3.6 g/dL (3.4-5.0); ALKALINE PHOSPHATASE 102 U/L (46-116); AMYLASE 26 U/L (25-115); BLOOD UREA NITROGEN 24 mg/dL (9-20); CHLORIDE 101 mEq/L (98-107); Calcium 8.9 mg/dL (8.5-10.1); Carbon Dioxide 22.7 mEq/L (21-32); Creatinine 1 0.88 mg/dl (0.55-1.30); EST GLOMERULAR FILTRATION RATE > 60 ML/MIN; Glucose 195 MG/DL (70-110); LIPASE 57 U/L (73-393); MAGNESIUM 1.8 mg/dL (1.8-2.4); Potassium 3.6 mEq/L (3.5-5.1); SGOT/AST 45 U/L (15-37); SGPT/ALT 38 U/L (12-78); SODIUM 138 mEq/L (136-145); Total Protein 7.3 gm/dL (6.4-8.2)
[2017-06-13] MEDS ORDERED: SUBLIMAZE 100 MCG/2 ML IV ONE (21:28)
[2017-06-13] MEDS ORDERED: Phenergan 25 MG INJ IV ONE (21:28)
[2017-06-13] MEDS ORDERED: Sodium Chloride 0.9% 1000 ML 1,000 ML IV SCH ×2 (21:30→23:15)
[2017-06-13] MEDS ORDERED: Phenergan 25 MG INJ ONE (21:32)
[2017-06-13] MEDS ORDERED: Sodium Chloride 0.9% 1000 ML 1,000 ML ONE (21:32)
[2017-06-13] MEDS ORDERED: SUBLIMAZE 100 MCG/2 ML ONE (21:32)
[2017-06-13] MEDS ORDERED: Sodium Chloride 0.9% 1000 ML 1,000 ML IV STA (21:45)
[2017-06-13 23:14] VITALS: BP 137/90; PULSE 80; O2SAT 98
--- NOTE | 2017-06-14 08:44 | XRAY ---
Indication: Occipital head injury following fall. Multiple contiguous axial images obtained through the head without contrast. Comparison: None Normal appearing brain parenchyma, ventricles, and bony calvarium. Visualized paranasal sinuses and mastoid air cells are essentially clear. Impression: No acute intracranial abnormalities. CT DI 49.57
--- NOTE | 2017-06-14 08:46 | XRAY ---
Indication: Pain following fall. Comparison: October 23, 2016. Oblique and lateral right knee demonstrates interval removal of patellar screws with now heterotopic ossifications. No other bony, articular, or soft tissue abnormalities.
--- NOTE | 2017-06-14 08:48 | XRAY ---
Indication: Pain following fall. Comparison: None 2 views of the right femur demonstrates minimally displaced/angulated intertrochanteric fracture with displaced lesser trochanteric fracture fragment. No other bony, articular, or soft tissue abnormalities. Knee reported separately.
--- NOTE | 2017-06-14 08:48 | XRAY ---
Indication: Pain following fall. Comparison: None AP/lateral right forearm obtained. No bony, articular, or soft tissue abnormalities.
--- NOTE | 2017-06-14 08:50 | XRAY ---
Indication: Pain following fall. Comparison: None AP pelvis demonstrates minimally displaced/angulated right intertrochanteric acute fracture with displaced lesser trochanteric fracture fragment. Moderate lower lumbar degenerative changes. No other bony, articular, or soft tissue abnormalities.
== END 2017-06-13 23:05 | disposition short-term general hospital (02) ==
LOC: ED 18:31
DX: S72.141A Displaced intertrochanteric fracture of right femur, initial encounter for closed fracture (principal); S50.01XA Contusion of right elbow, initial encounter; S80.01XA Contusion of right knee, initial encounter; S50.811A Abrasion of right forearm, initial encounter; F15.99 Other stimulant use, unspecified with unspecified stimulant-induced disorder; W06.XXXA Fall from bed, initial encounter; Y92.003 Bedroom of unspecified non-institutional (private) residence as the place of occurrence of the external cause; B27.90 Infectious mononucleosis, unspecified without complication; M19.90 Unspecified osteoarthritis, unspecified site; F41.8 Other specified anxiety disorders; E11.9 Type 2 diabetes mellitus without complications; Z79.899 Other long term (current) drug therapy
CPT/HCPCS: 36000; 36415; 70450; 72170; 73090; 73552; 73560; 80053; 80307; 81002; 82150; 83690; 83735; 85025; 86308; 96360; 96361; 96374; 96375; 99285; J2550; J3010; A9270-GY

== ENCOUNTER 2017-06-24 19:42 | Emergency (ER) | payer MEDICARE ==
[2017-06-24] MEDS ORDERED: DUONEB 0.5-3 MG/3 ml Neb IH ONE ×4 (20:07→21:48)
[2017-06-24] MEDS ORDERED: Zithromax 500 MG/ 250 ML NaCl Premix 500 MG/250 ML IVPB IV STA (20:07)
[2017-06-24] MEDS ORDERED: ROCEPHIN 1 Gm-D5w 50 ml Bag** 1 G/50 ML IVPB IV STA (20:07)
[2017-06-24] MEDS ORDERED: Sodium Chloride 0.9% 1000 ML 1,000 ML ONE (20:08)
[2017-06-24] MEDS ORDERED: Sodium Chloride 0.9% 1000 ML 1,000 ML IV STA ×2 (20:13→20:34)
[2017-06-24] MEDS ORDERED: Zithromax 500 MG/ 250 ML NaCl Premix 500 MG/250 ML IVPB IV ONE (20:14)
[2017-06-24] MEDS ORDERED: ROCEPHIN 1 Gm-D5w 50 ml Bag** 1 G/50 ML IVPB IV ONE (20:14)
[2017-06-24 20:43] LABS: BASOPHIL % 0.5 % (0.0-0.4); Basophil (Absolute #) 0.04 (0-0.4); Eosinophil % 1.2 % (0.00-5.0); Granulocyte Absolute (ANC) 5.91 (1.4-6.9); Granulocytes % 73.7 % (36.0-66.0); Hematocrit 34.3 % (42-50); Hemoglobin 11.5 gm/dl (12.5-18.0); Lymphocyte (Absolute #) 1.26 (1.0-4.6); Lymphocytes % 15.7 % (24.0-44.0); Mean Cell Volume 90.5 fl (78-100); Mean Corpuscular Hemoglobin 30.3 pg (26-32); Mean Corpuscular Hgb Concent. 33.5 g/dl (32-36); Mean Platelet Volume 9.9 fl (6-9.5); Monocyte (Absolute #) 0.71 (0.0-1.3); Monocytes % 8.9 % (0.0-12.0); Platelet Count 447 K/mm3 (150-450); Red Blood Count 3.79 M/mm3 (4.1-5.6); Red Cell Distribution Width 13.1 % (11.5-14.0)
[2017-06-24] MEDS ORDERED: NORCO 5/325 MG PO ONE (20:49)
[2017-06-24] MEDS ORDERED: NORCO 5/325 MG ONE (20:56)
--- NOTE | 2017-06-24 20:57 | ERPHSYRPT ---
- History of Present Illness Time Seen by Provider: 06/24/17 19:58 Source: patient Exam Limitations: clinical condition Patient Subjective Stated Complaint: Weakness and cough Triage Nursing Assessment: Pt presents to the ED with complaints of cough and weakness. Pt states onset of symtpoms yesterday. Pt states productive cough with green mucus. Pt states he had right hip fracture repaired last monday, states pain in hip but is not new pain. Pt denies other complaints. Pt is A&O x4 , bed in low position, call light in reach. No distress noted. Physician History: PATIENT WITH A HISTORY OF COPD, TYPE 2 DIABETES, IS POSTOPERATIVE RIGHT HIP SURGERY 1 WEEK AGO, COMPLAINS OF PRODUCTIVE COUGH GREEN SPUTUM AND DIFFICULTY BREATHING SINCE EARLIER TODAY. UNSURE OF FEVER OR CHILLS. Timing/Duration: today Severity of Dyspnea-Max: moderate Severity of Dyspnea-Current: moderate Possible Cause: occasional episodes Modifying Factors: Improves With: activity, coughing, exertion Associated Symptoms: cough, wheezing, productive cough International travel in last 2 weeks: No Allergies/Adverse Reactions: No Known Drug Allergies Allergy (Verified 06/13/17 18:42) Home Medications: Amlodipine Besylate 5 mg PO DAILY 12/05/14 [History] Aspirin 81 mg PO DAILY 12/05/14 [History] Albuterol Sulfate [Proair Hfa] 1 - 2 puffs IH Q4-6HPRN PRN 11/11/15 [History] Atorvastatin Calcium 80 mg PO DAILY 11/11/15 [History] Bumetanide 1 mg [Bumex 1 mg] 1 mg PO DAILY PRN PRN 11/11/15 [History] Hydrochlorothiazide 12.5 mg PO DAILY 11/11/15 [History] Metformin HCl 500 mg [Glucophage 500 MG] 500 mg PO BID 11/11/15 [History] Nitroglycerin 0.4 mg Tablet [Nitrostat 0.4 MG Tablet] 0.4 mg SL UD PRN 01/18 [History] Carvedilol [Coreg] 25 mg PO BID 06/24/17 [History] Gabapentin 400 mg [Neurontin 400 MG] 800 mg PO 06/24/17 [History] Hydrocodone/Acetaminophen [Otter 5-325 Tablet] 1 each PO Q6H PRN 06/24/17 [ History] Hx Tetanus, Diphtheria Vaccination/Date Given: Yes Hx Influenza Vaccination/Date Given: No Hx Pneumococcal Vaccination/Date Given: No Immunizations Up to Date: No - Review of Systems Constitutional: No Fever, No Chills Eyes: No Symptoms Ears, Nose, & Throat: No Symptoms Respiratory: Cough, Dyspnea, Dyspnea on Exertion (HACKETT) Cardiac: No Symptoms, No Chest Pain, No Edema, No Syncope Abdominal/Gastrointestinal: No Symptoms, No Abdominal Pain, No Nausea, No Vomiting, No Diarrhea Genitourinary Symptoms: No Dysuria Musculoskeletal: Joint Pain (PREVIOUS HIP SURGERY), No Back Pain, No Neck Pain Skin: No Rash Neurological: No Dizziness, No Focal Weakness, No Sensory Changes Psychological: No Symptoms Endocrine: No Symptoms All Other Systems: Reviewed and Negative - Past Medical History Pertinent Past Medical History: Yes Neurological History: Peripheral Neuropathy ENT History: No Pertinent History Cardiac History: Myocardial Infarction (DC) Respiratory History: Bronchitis Endocrine Medical History: Diabetes Type II Musculoskeletal History: Arthritis GI Medical History: Diverticulitis, Diverticulosis History: No Pertinent History Psycho-Social History: Anxiety, Depression, Other Male Reproductive Disorders: No Pertinent History Other Medical History: Chronic pain syndrome, acoholic - Past Surgical History Past Surgical History: Yes Neuro Surgical History: No Pertinent History Cardiac: Cardiac Catheterization, Cardiac Stent Respiratory: No Pertinent History Gastrointestinal: No Pertinent History Genitourinary: No Pertinent History Musculoskeletal: Orthopedic Surgery Male Surgical History: No Pertinent History Other Surgical History: right hand surgery and 3 previous back surgeries. lt arm surgery with skin graft and rt drop foot from post overdose weeks ago. three lumbar spinal surgeries noted. Right hip repair - Social History Smoking Status: Current every day smoker How long have you smoked: 30 years Exposure to second hand smoke: Yes Alcohol Use: Chronic Drug Use: none Patient Lives Alone: No Significant Family History: heart disease, diabetes, hypertension - Nursing Vital Signs Nursing Vital Signs: Initial Vital Signs Temperature 98.7 F 06/24/17 19:44 Pulse Rate 102 H 06/24/17 19:44 Respiratory Rate 16 06/24/17 19:44 Blood Pressure 114/85 06/24/17 19:44 O2 Sat by Pulse Oximetry 94 L 06/24/17 19:44 Pain Scale Pain Intensity 8 - Physical Exam General Appearance: no apparent distress, alert Eye Exam: PERRL/EOMI Neck Exam: normal inspection, supple Respiratory Exam: diminished breath sounds, wheezing (BIBASILAR WHEEZES, NO RHONCHI, NO ACCESSORY MUSCLE USE OR INTERCOSTAL RETRACTIONS) Cardiovascular/Chest Exam: normal heart sounds, regular rate/rhythm Abdominal/Gastrointestinal Exam: soft, normal bowel sounds, No tenderness, No distention, No mass Extremity Exam: non-tender, normal range of motion, normal inspection, no calf tenderness, no pedal edema Peripheral Pulses Exam: carotid (R): 2+, carotid (L): 2+, femoral (R): 2+, femoral (L): 2+, dorsalis-pedis (R): 2+, dorsalis-pedis (L): 2+ Neurologic Exam: alert, oriented x 3, cooperative, bobbin hauler II-XII nml as tested, sensation nml, No motor deficits Skin Exam: normal color, warm, No dry SpO2 Interpretation: normal SpO2: 95 Oxygen Delivery: Room Air - Radiology Exams Chest X-ray Interpretation: Interpreted by me (COPD, HYPERINFLATION, FLAT DIAPHRAMS, NO INFILTRATES) Ordered Tests: Active Orders 24 hr Category Date Time Status Smoke Room Operator STAT Care 06/24/17 20:08 Active Clean Catch Urine Specimen STAT Care 06/24/17 20:07 Active Oxygen-ED Only NASAL CANNULA 2 lpm Care 06/24/17 20:07 Active CHEST 1 VIEW (PORTABLE) Stat Exams 06/24/17 20:08 Taken BLOOD CULTURE Stat Lab 06/24/17 20:40 Received BMP Stat Lab 06/24/17 20:40 Completed CBC W DIFF Stat Lab 06/24/17 20:40 Completed CULTURE, THROAT Stat Lab 06/24/17 19:45 Received STREP SCREEN-BETA A Stat Lab 06/24/17 19:45 Completed UA W/RFX UR CULTURE Stat Lab 06/24/17 20:07 Ordered Respiratory Nebulizer STAT RT 06/24/17 20:09 Completed Medication Summary Generic Name Dose Route Start Last Admin Trade Name Freq PRN Reason Stop Dose Admin Sodium Chloride 1,000 mls @ 999 mls/hr 06/24/17 20:34 06/24/17 21:21 Sodium Chloride 0.9% 1000 Ml IV 06/24/17 21:34 Not Given .Q1H1M STA Discontinued Medications Generic Name Dose Route Start Last Admin Trade Name Freq PRN Reason Stop Dose Admin Hydrocodone Bitart/Acetaminophen 1 tab 06/24/17 20:49 06/24/17 20:57 Otter 5/325 Mg PO 06/24/17 20:50 1 tab STAT ONE Administration Hydrocodone Bitart/Acetaminophen Confirm 06/24/17 20:56 Otter 5/325 Mg Administered 06/24/17 20:57 Dose 1 tab .ROUTE .STK-MED ONE Albuterol/Ipratropium 3 ml 06/24/17 20:07 06/24/17 20:26 Duoneb 0.5-3 Mg/3 Ml Neb IH 06/24/17 20:08 3 ml STAT ONE Administration Albuterol/Ipratropium Confirm 06/24/17 20:24 Duoneb 0.5-3 Mg/3 Ml Neb Administered 06/24/17 20:25 Dose 3 ml IH .STK-MED ONE Ceftriaxone Sodium/Dextrose 1 g in 50 mls @ 100 mls/hr 06/24/17 20:07 20:15 Rocephin 1 Gm-D5w 50 Ml Bag IV 06/24/17 20:36 100 mls/hr STAT STA Administration Azithromycin 500 mg in 250 mls @ 250 mls/hr 06/24/17 20:07 06/24/17 20:57 Zithromax 500 Mg/ 250 Ml Nacl Premix IV 06/24/17 21:06 250 mls/hr STAT STA Administration Sodium Chloride Confirm 06/24/17 20:08 Sodium Chloride 0.9% 1000 Ml Administered 06/24/17 20:09 Dose 1,000 mls @ ud .ROUTE .STK-MED ONE Sodium Chloride 1,000 mls @ 999 mls/hr 06/24/17 20:13 06/24/17 20:15 Sodium Chloride 0.9% 1000 Ml IV 06/24/17 21:13 999 mls/hr .Q1H1M STA Administration Azithromycin Confirm 06/24/17 20:14 Zithromax 500 Mg/ 250 Ml Nacl Premix Administered 06/24/17 20:15 Dose 500 mg in 250 mls @ ud IV .STK-MED ONE Ceftriaxone Sodium/Dextrose Confirm 06/24/17 20:14 Rocephin 1 Gm-D5w 50 Ml Bag Administered 06/24/17 20:15 Dose 1 g in 50 mls @ ud IV .STK-MED ONE Lab/Rad Data: Laboratory Result Diagrams 06/24/17 20:40 06/24/17 20:40 Laboratory Results 06/24/17 06/24/17 06/24/17 Range/Units 20:40 20:40 19:45 WBC 8.0 (4.0-10.5) K/mm3 RBC 3.79 L (4.1-5.6) M/mm3 Hgb 11.5 L (12.5-18.0) gm/dl Hct 34.3 L (42-50) % MCV 90.5 (78-100) fl MCH 30.3 (26-32) pg MCHC 33.5 (32-36) g/dl RDW 13.1 (11.5-14.0) % Plt Count 447 (150-450) K/mm3 MPV 9.9 H (6-9.5) fl Gran % 73.7 H (36.0-66.0) % Lymphocytes % 15.7 L (24.0-44.0) % Monocytes % 8.9 (0.0-12.0) % Eosinophils % 1.2 (0.00-5.0) % Basophils % 0.5 (0.0-0.4) % Basophils # 0.04 (0-0.4) Sodium 142 (136-145) mEq/L Potassium 3.7 (3.5-5.1) mEq/L Chloride 106 (98-107) mEq/L Carbon Dioxide 28.6 (21-32) mEq/L Anion Gap 10.7 (5-15) MEQ/L BUN 6 L (9-20) mg/dL Creatinine 0.71 (0.55-1.30) mg/dl Estimated GFR > 60 ML/MIN Glucose 210 H (70-110) MG/DL Calcium 9.1 (8.5-10.1) mg/dL Streptococcus Screen NEGATIVE (Negative) - Progress Progress: improved Air Movement: good Progress Note: 06/24/17 20:57 ADMINISTERED DUO NEB AEROSOL TX FOLLOWED BY XOPENEX 1.25MG AEROSOL TX, SOLUMEDROL 125MG IV,AFTER 2 SETS OF BLOOD CULTURES, ROCEPHIN 1GM, ZITHROMAX 5OOMG IVPB. Blood Culture(s) Obtained: Yes Antibiotics given: Yes Counseled pt/family regarding: lab results, diagnosis, need for follow-up - Departure Time of Disposition: 21:50 Departure Disposition: Home Clinical Impression: ACUTE EXACERBATION COPD Condition: Stable Critical Care Time: No Referrals: ROSANA MURRIETA [Primary Care Provider] - Additional Instructions: CONTINUE AEROSOL TREATMENTS EVERY 4 HOURS NEEDED. ANTIBIOTIC OMNICEF 300MG TWICE DAILY FOR 10 DAYS. CONTINUE ALL CURRENT MEDICATIONS. TAKE OVER THE COUNTER COUGH SYRUP FOR COUGHING. Prescriptions: Cefdinir [Omnicef 300 mg] 300 mg PO BID #20 capsule
[2017-06-24 21:00] LABS: ANION GAP 10.7 MEQ/L (5-15); BLOOD UREA NITROGEN 6 mg/dL (9-20); CHLORIDE 106 mEq/L (98-107); Calcium 9.1 mg/dL (8.5-10.1); Carbon Dioxide 28.6 mEq/L (21-32); Creatinine 1 0.71 mg/dl (0.55-1.30); EST GLOMERULAR FILTRATION RATE > 60 ML/MIN; Glucose 210 MG/DL (70-110); Potassium 3.7 mEq/L (3.5-5.1); SODIUM 142 mEq/L (136-145)
[2017-06-24 22:05] LABS: Appearance CLEAR (CLEAR); Bilirubin NEGATIVE (NEGATIVE); Blood NEGATIVE Ery/ul (0-5); Glucose 100 mg/dL (NEGATIVE); Ketones SMALL (NEGATIVE); Leukocyte Esterase NEGATIVE (NEGATIVE); Nitrite NEGATIVE (NEGATIVE); Protein,Urine Dip NEGATIVE (Negative); Urobilinogen 1 mg/dL (0-1)
[2017-06-24 22:07] LABS: INFLUENZA A NEGATIVE (NEGATIVE); INFLUENZA B NEGATIVE (NEGATIVE); RESPIRATORY SYNCTIAL VIRUS NEGATIVE (Negative)
[2017-06-24 22:13] VITALS: BP 122/85; PULSE 100; O2SAT 96
--- NOTE | 2017-06-24 23:16 | XRAY ---
Indication: Cough. Difficulty breathing. Comparison: May 10, 2016. Portable chest remains hyperinflated today without focal infiltrate, consolidation, or large effusion. Heart is not enlarged. Bony thorax intact with again mild osteopenia, mild degenerative changes, and old right rib fractures. Impression: Nonacute hyperinflated chest.
== END 2017-06-24 22:13 | disposition home or self-care (01) ==
LOC: ED 19:42
DX: J44.1 Chronic obstructive pulmonary disease with (acute) exacerbation (principal); E11.9 Type 2 diabetes mellitus without complications; Z79.4 Long term (current) use of insulin; F41.8 Other specified anxiety disorders; I25.2 Old myocardial infarction; Z79.899 Other long term (current) drug therapy
CPT/HCPCS: 36000; 36415; 71045; 80048; 81002; 85025; 87040; 87070; 87430; 87631; 93041; 94640; 96360; 96365; 99284; J0456; J0696; A9270-GY

== ENCOUNTER 2017-06-26 02:32 | Emergency (ER) | payer MEDICARE ==
--- NOTE | 2017-06-26 02:49 | ERPHSYRPT ---
- History of Present Illness Time Seen by Provider: 06/26/17 02:40 Source: patient Exam Limitations: clinical condition Physician History: PATIENT WITH A HISTORY OF HYPERTENSION, COPD, CORONARY ARTERY DISEASE HAD RIGHT HIP REPLACEMENT, AND FELL ONTO BUTTOCK Occurred: just prior to arrival Reason for Fall: slipped Injuries/Pain Location: lower extremity Loss of Consciousness: no loss of consciousness Quality: throbbing Severity of Pain-Max: moderate Severity of Pain-Current: moderate Modifying Factors: Improves With: movement Associated Symptoms (Fall): other (SLIPPED AND FELL ONTO BUTTOCK AND HAS RIGHT HIP PAIN) Allergies/Adverse Reactions: No Known Drug Allergies Allergy (Verified 06/26/17 02:55) Home Medications: Amlodipine Besylate 5 mg PO DAILY 12/05/14 [History] Aspirin 81 mg PO DAILY 12/05/14 [History] Albuterol Sulfate [Proair Hfa] 1 - 2 puffs IH Q4-6HPRN PRN 11/11/15 [History] Atorvastatin Calcium 80 mg PO DAILY 11/11/15 [History] Bumetanide 1 mg [Bumex 1 mg] 1 mg PO DAILY PRN PRN 11/11/15 [History] Hydrochlorothiazide 12.5 mg PO DAILY 11/11/15 [History] Metformin HCl 500 mg [Glucophage 500 MG] 500 mg PO BID 11/11/15 [History] Nitroglycerin 0.4 mg Tablet [Nitrostat 0.4 MG Tablet] 0.4 mg SL UD PRN 01/18 [History] Carvedilol [Coreg] 25 mg PO BID 06/24/17 [History] Gabapentin 400 mg [Neurontin 400 MG] 800 mg PO 06/24/17 [History] Hydrocodone/Acetaminophen [Mcdaniel 5-325 Tablet] 1 each PO Q6H PRN 06/24/17 [ History] Hx Tetanus, Diphtheria Vaccination/Date Given: Yes Hx Influenza Vaccination/Date Given: No Hx Pneumococcal Vaccination/Date Given: No - Review of Systems Constitutional: No Fever, No Chills Eyes: No Symptoms Ears, Nose, & Throat: No Symptoms Respiratory: No Cough, No Dyspnea Cardiac: No Symptoms, No Chest Pain, No Edema, No Syncope Abdominal/Gastrointestinal: No Abdominal Pain, No Nausea, No Vomiting, No Diarrhea Genitourinary Symptoms: No Symptoms, No Dysuria Musculoskeletal: Injury, Joint Pain, No Back Pain, No Neck Pain Skin: No Rash Neurological: No Dizziness, No Focal Weakness, No Sensory Changes Psychological: No Symptoms Endocrine: No Symptoms All Other Systems: Reviewed and Negative - Past Medical History Pertinent Past Medical History: Yes Neurological History: Peripheral Neuropathy ENT History: No Pertinent History Cardiac History: Myocardial Infarction (CT) Respiratory History: Bronchitis Endocrine Medical History: Diabetes Type II Musculoskeletal History: Arthritis GI Medical History: Diverticulitis, Diverticulosis History: No Pertinent History Psycho-Social History: Anxiety, Depression, Other Male Reproductive Disorders: No Pertinent History Other Medical History: Chronic pain syndrome, acoholic - Past Surgical History Past Surgical History: Yes Neuro Surgical History: No Pertinent History Cardiac: Cardiac Catheterization, Cardiac Stent Respiratory: No Pertinent History Gastrointestinal: No Pertinent History Genitourinary: No Pertinent History Musculoskeletal: Orthopedic Surgery Male Surgical History: No Pertinent History Other Surgical History: right hand surgery and 3 previous back surgeries. lt arm surgery with skin graft and rt drop foot from post overdose weeks ago. three lumbar spinal surgeries noted. Right hip repair - Social History Smoking Status: Current every day smoker How long have you smoked: 30 years Exposure to second hand smoke: Yes Alcohol Use: Chronic Drug Use: none Patient Lives Alone: No Significant Family History: heart disease, diabetes, hypertension - Nursing Vital Signs Nursing Vital Signs: Initial Vital Signs Temperature 98.2 F 06/26/17 02:41 Pulse Rate 80 06/26/17 02:41 Respiratory Rate 18 06/26/17 02:41 Blood Pressure 124/86 06/26/17 02:41 O2 Sat by Pulse Oximetry 97 06/26/17 02:41 Pain Scale Pain Intensity 7 - Physical Exam General Appearance: mild distress Head Injury: no evidence of injury Eye Exam: PERRL/EOMI ENT Exam: airway nml Neck Exam: normal inspection, No tenderness Respiratory/Chest Exam: normal breath sounds, No chest tenderness, No respiratory distress Cardiovascular Exam: normal heart sounds, regular rate/rhythm Gastrointestinal Exam: soft, No tenderness, No distention, No guarding, No ecchymosis Back Exam: normal inspection, rash Extremity Exam: pelvis stable, limited range of motion (RIGHT HIP, THERE IS TENDERNESS WITH MODERATE RIGHT GREATER TROCHANTER, NO ECCHYMOSIS, RIGHT PEDIS PULSE 2+ ) Peripheral Pulses: carotid (R): 2+, carotid (L): 2+, femoral (R): 2+, femoral (L ): 2+, dorsalis-pedis (R): 2+, dorsalis-pedis (L): 2+ Neurologic Exam: alert, oriented x 3 SpO2 Interpretation: normal SpO2: 95 Oxygen Delivery: Room Air - Radiology Exams Right Femur X-ray Interpretation: Interpreted by me (HARD BRANTLEY PROSTHESIS INTACT) Pelvis X-ray Interpretation: Interpreted by me, Negative, No Fracture Ordered Tests: Active Orders 24 hr Category Date Time Status FEMUR Stat Exams 06/26/17 02:39 Ordered HIP UNI (2V) INCL PEL IF DONE Stat Exams 06/26/17 02:38 Ordered Medication Summary Discontinued Medications Generic Name Dose Route Start Last Admin Trade Name Kennyq PRN Reason Stop Dose Admin Hydrocodone Bitart/Acetaminophen 1 tab 06/26/17 02:50 06/26/17 03:03 Mcdaniel 10/325 Mg Tablet PO 06/26/17 02:51 1 tab STAT ONE Administration Hydrocodone Bitart/Acetaminophen Confirm 06/26/17 03:00 Mcdaniel 10/325 Mg Tablet Administered 06/26/17 03:01 Dose 1 tab .ROUTE .STK-MED ONE - Progress Progress Note: 06/26/17 03:54 ADMINISTERED NORCO 10/325 ORALLY Counseled pt/family regarding: diagnosis, need for follow-up, rad results - Departure Time of Disposition: 04:00 Departure Disposition: Home Clinical Impression: RIGHT HIP CONTUSION Condition: Stable Critical Care Time: No Referrals: ROSANA MURRIETA [Primary Care Provider] - Additional Instructions: CONTINUE ALL CURRENT MEDICATIONS. CONSULT YOUR PRIMARY CARE PROVIDER AND ORTHOPEDIC SURGEON FOR EVALUATION.
[2017-06-26] MEDS ORDERED: Norco 10/325 MG Tablet PO ONE (02:50)
[2017-06-26] MEDS ORDERED: Norco 10/325 MG Tablet ONE (03:00)
[2017-06-26 03:57] VITALS: BP 130/84; PULSE 75; O2SAT 95
--- NOTE | 2017-06-26 08:50 | XRAY ---
Indication: Pain following fall. Comparison: None 2 views of the right hip demonstrates healing intertrochanteric fracture with gamma nail and partially visualized intramedullary juan a in situ with good fracture apposition/alignment. Mild displaced lesser trochanteric fracture fragment. Lateral cutaneous valerie attest to recent surgery. No other bony, articular, or soft tissue abnormalities.
--- NOTE | 2017-06-26 08:52 | XRAY ---
Indication: Pain following fall. Comparison: June 13, 2017. 2 views of the right femur now demonstrates healing intertrochanteric fracture with intact gamma nail/intramedullary juan a/distal screw in situ with good fracture apposition/alignment. Stable displaced lesser trochanteric fracture fragment. Lateral cutaneous valerie attest to recent surgery. No other bony, articular, or soft tissue abnormalities.
== END 2017-06-26 04:18 | disposition home or self-care (01) ==
LOC: ED 02:32
DX: S70.01XA Contusion of right hip, initial encounter (principal); W01.0XXA Fall on same level from slipping, tripping and stumbling without subsequent striking against object, initial encounter; Z96.641 Presence of right artificial hip joint; Z79.899 Other long term (current) drug therapy
CPT/HCPCS: 73502; 73552; 99282; 99283; A9270-GY

== ENCOUNTER 2017-10-27 19:46 | Emergency (ER) | payer MEDICARE ==
[2017-10-27] MEDS ORDERED: MOTRIN 400 MG ONE (19:59)
[2017-10-27] MEDS ORDERED: MOTRIN 400 MG PO ONE (20:00)
--- NOTE | 2017-10-27 20:05 | ERPHSYRPT ---
- History of Present Illness Time Seen by Provider: 10/27/17 19:53 Source: patient Exam Limitations: no limitations Patient Subjective Stated Complaint: fell earlier today and sore right hip Triage Nursing Assessment: pt is alert and oriented. pt brought in by ambulance. pt states that he fell at 1330 today and has had a sore right hip since. pt states "he was trying to wait it out and tried walking to get food but was unable to make it". pt has had previous injury to R hip in June. no redness, swelling, bruising or open areas noted to hip. scar from previous incision noted. Physician History: Pt states, he tripped and fell at home, landed on his buttock, developed pain in his left hip area. He denies other injury or complaints, he has been walking , trying to get some food, but it became too painful, and had to call 911. He underwent ORIF of the right hip 3 months ago after a falling injury. Occurred: this afternoon Reason for Fall: tripped Injuries/Pain Location: lower extremity Loss of Consciousness: no loss of consciousness Quality: sharpness Severity of Pain-Max: severe Severity of Pain-Current: severe Modifying Factors: Improves With: movement Associated Symptoms (Fall): denies symptoms Allergies/Adverse Reactions: No Known Drug Allergies Allergy (Verified 06/26/17 02:55) Home Medications: Amlodipine Besylate 5 mg PO DAILY 12/05/14 [History] Aspirin 81 mg PO DAILY 12/05/14 [History] Albuterol Sulfate [Proair Hfa] 1 - 2 puffs IH Q4-6HPRN PRN 11/11/15 [History] Atorvastatin Calcium 80 mg PO DAILY 11/11/15 [History] Bumetanide 1 mg [Bumex 1 mg] 1 mg PO DAILY PRN PRN 11/11/15 [History] Metformin HCl 500 mg [Glucophage 500 MG] 500 mg PO BID 11/11/15 [History] Nitroglycerin 0.4 mg Tablet [Nitrostat 0.4 MG Tablet] 0.4 mg SL UD PRN 01/18 [History] hydroCHLOROthiazide [Hydrochlorothiazide] 12.5 mg PO DAILY 11/11/15 [History] Carvedilol [Coreg] 25 mg PO BID 06/24/17 [History] Gabapentin 400 mg [Neurontin 400 MG] 800 mg PO 06/24/17 [History] Hydrocodone/Acetaminophen [Bonsall 5-325 Tablet] 1 each PO Q6H PRN 06/24/17 [ History] Hx Tetanus, Diphtheria Vaccination/Date Given: Yes Hx Influenza Vaccination/Date Given: No Hx Pneumococcal Vaccination/Date Given: No Immunizations Up to Date: Yes - Review of Systems Constitutional: No Symptoms Musculoskeletal: Other (right hip pain) All Other Systems: Reviewed and Negative - Past Medical History Pertinent Past Medical History: Yes Neurological History: Peripheral Neuropathy ENT History: No Pertinent History Cardiac History: Myocardial Infarction (ID) Respiratory History: Bronchitis Endocrine Medical History: Diabetes Type II Musculoskeletal History: Arthritis GI Medical History: Diverticulitis, Diverticulosis History: No Pertinent History Psycho-Social History: Anxiety, Depression, Other Male Reproductive Disorders: No Pertinent History Other Medical History: Chronic pain syndrome, acoholic - Past Surgical History Past Surgical History: Yes Neuro Surgical History: No Pertinent History Cardiac: Cardiac Catheterization, Cardiac Stent Respiratory: No Pertinent History Gastrointestinal: No Pertinent History Genitourinary: No Pertinent History Musculoskeletal: Orthopedic Surgery Male Surgical History: No Pertinent History Other Surgical History: right hand surgery and 3 previous back surgeries. lt arm surgery with skin graft and rt drop foot from post overdose weeks ago. three lumbar spinal surgeries noted. Right hip repair. right knee repair - Social History Smoking Status: Current every day smoker How long have you smoked: 30 years Exposure to second hand smoke: Yes Alcohol Use: Chronic Drug Use: none Patient Lives Alone: Yes Significant Family History: heart disease, diabetes, hypertension - Nursing Vital Signs Nursing Vital Signs: Initial Vital Signs Temperature 98.4 F 10/27/17 19:46 Pulse Rate 70 10/27/17 19:46 Respiratory Rate 16 10/27/17 19:46 Blood Pressure 161/102 10/27/17 19:46 O2 Sat by Pulse Oximetry 97 10/27/17 19:46 Pain Scale Pain Intensity 10 - Jose Coma Score Best Eye Response ([place]): (4) open spontaneously Best Verbal Response ([place]): (5) oriented Best Motor Response (Jose): (6) obeys commands Jose Total: 15 - Physical Exam General Appearance: no apparent distress Head Injury: no evidence of injury Eye Exam: PERRL/EOMI ENT Exam: airway nml, evidence of ENT injury Neck Exam: supple, trachea midline, full range of motion, normal alignment, normal inspection Respiratory/Chest Exam: normal breath sounds, No chest tenderness, No ecchymosis , No crepitus Cardiovascular Exam: normal heart sounds, regular rate/rhythm, normal peripheral pulses, No murmur, No edema Gastrointestinal Exam: soft, normal bowel sounds, No tenderness, No ecchymosis Back Exam: normal inspection, other (right paralumbar, parasacral tenderness, no swelling, bruises, ecchymosis), No CVA tenderness, No vertebral tenderness, No muscle spasm, No point tenderness Extremity Exam: normal inspection, normal range of motion, pelvis stable, other (right hip tender, no swelling, deformity, painful motions, but no shortnening or rotation, good distal pulses and sensation.) Peripheral Pulses: dorsalis-pedis (R): 2+, dorsalis-pedis (L): 2+ Neurologic Exam: alert, oriented x 3, normal mood/affect Skin Exam: normal color, warm, dry SpO2 Interpretation: normal SpO2: 97 Oxygen Delivery: Room Air - Course Nursing assessment & vital signs reviewed: Yes - Radiology Exams Hip X-ray Interpretation: Interpreted by me, Negative, Other (metalware in good position, no fracture) L-Spine X-ray Interpretation: Interpreted by me, Negative, Other (DJD L3-4 and L4-5, no fracture or dislocation) Ordered Tests: Active Orders 24 hr Category Date Time Status HIP UNI (2V) INCL PEL IF DONE Stat Exams 10/27/17 19:59 Taken LUMBAR LIMITED (2 OR 3 VIEWS) Stat Exams 10/27/17 19:59 Taken Medication Summary Discontinued Medications Generic Name Dose Route Start Last Admin Trade Name Freq PRN Reason Stop Dose Admin Hydrocodone Bitart/Acetaminophen 1 tab 10/27/17 21:09 Bonsall 5/325 Mg PO 10/27/17 21:10 STAT ONE Ibuprofen 400 mg 10/27/17 20:00 10/27/17 20:06 Motrin 400 Mg PO 10/27/17 20:01 400 mg STAT ONE Administration Ibuprofen Confirm 10/27/17 19:59 Motrin 400 Mg Administered 10/27/17 20:00 Dose 400 mg .ROUTE .STK-MED ONE - Progress Progress: improved Progress Note: 10/27/17 21:11 Pt was informed about X ray findings, given 1 tab Bonsall 5/325 and Motrin 400 mg PO, discharged home in good condition to follow up with his PCP and pain clinic. Counseled pt/family regarding: diagnosis, need for follow-up, rad results - Departure Time of Disposition: 21:12 Departure Disposition: Home Clinical Impression: Contusion, hip Qualifiers: Encounter type: initial encounter Laterality: right Qualified Code(s): S70.01XA - Contusion of right hip, initial encounter Condition: Stable Critical Care Time: No Referrals: ROSANA MURRIETA [Primary Care Provider] - Instructions: Contusion (DC), Sciatica Additional Instructions: Rest x 2-3 days, apply moist heat to painful area, return if severe pain, sudden leg weakness, numbness, loss of bladder, bowel control! Prescriptions: Cyclobenzaprine HCl [Flexeril] 10 mg PO TID #15 tablet
[2017-10-27] MEDS ORDERED: NORCO 5/325 MG PO ONE (21:09)
[2017-10-27] MEDS ORDERED: NORCO 5/325 MG ONE (21:14)
[2017-10-27 21:34] VITALS: BP 158/105; PULSE 65; O2SAT 98
--- NOTE | 2017-10-27 22:24 | XRAY ---
Indication: Pain following fall. Comparison: June 26, 2017. 2 views of the right hip demonstrates continued healing intertrochanteric fracture with intact orthopedic hardware. Cutaneous valerie removed. No new/acute bony, articular, or soft tissue abnormalities.
--- NOTE | 2017-10-27 22:26 | XRAY ---
Indication: Pain following fall. Comparison: None AP/lateral lumbar spine demonstrates normal lumbar alignment with moderate L3-L5 degenerative disc disease as evidenced by disc space loss, vacuum disc phenomena, and endplate spurring. Lesser degree seen of the remaining visualized thoracolumbar levels. No acute fracture, subluxation, or soft tissue abnormalities. Right hip reported separately. Impression: Nonacute lumbar spine with chronic features.
== END 2017-10-27 21:33 | disposition home or self-care (01) ==
LOC: ED 19:46
DX: S70.01XA Contusion of right hip, initial encounter (principal); M25.551 Pain in right hip; W19.XXXA Unspecified fall, initial encounter; Y92.009 Unspecified place in unspecified non-institutional (private) residence as the place of occurrence of the external cause; M47.896 Other spondylosis, lumbar region; Z79.82 Long term (current) use of aspirin; Z79.899 Other long term (current) drug therapy
CPT/HCPCS: 72100; 73502; 99284; A9270-GY

== ENCOUNTER 2019-01-20 13:29 | Emergency (ER) | payer MEDICARE ==
[2019-01-20] MEDS ORDERED: Sodium Chloride 0.9% 1000 ML 1,000 ML IV STA (14:00)
[2019-01-20] MEDS ORDERED: Sodium Chloride 0.9% 1000 ML 1,000 ML ONE (14:14)
[2019-01-20 14:15] LABS: BASOPHIL % 0.3 % (0.0-0.4); Basophil (Absolute #) 0.03 (0-0.4); Eosinophil % 1.9 % (0.00-5.0); Eosinophil (Absolute #) 0.17 (0-0.5); Granulocytes % 57.9 % (36.0-66.0); Hematocrit 48.9 % (42-50); Hemoglobin 17.3 gm/dl (12.5-18.0); Lymphocyte (Absolute #) 2.92 (1.0-4.6); Lymphocytes % 33.1 % (24.0-44.0); Mean Cell Volume 88.9 fl (78-100); Mean Corpuscular Hemoglobin 31.5 pg (26-32); Mean Corpuscular Hgb Concent. 35.4 g/dl (32-36); Mean Platelet Volume 9.6 fl (6-9.5); Monocytes % 6.8 % (0.0-12.0); Platelet Count 286 K/mm3 (150-450); Red Cell Distribution Width 15.1 % (11.5-14.0); White Blood Count 8.8 K/mm3 (4.0-10.5)
--- NOTE | 2019-01-20 14:19 | ERPHSYRPT ---
- History of Present Illness Patient Subjective Stated Complaint: is an alcoholic and has been drinking heavy today and is wanting help to get dried out and quit drinking. has drank approx one fifth of vodka today. Triage Nursing Assessment: patient in waiting room in wheelchair alone. taken to room and stated police commanding officer had brought him here to get checked. a/o times three. skin w/d, color normal, resp easy. has strong fruity odor to breath. speech clear. Allergies/Adverse Reactions: No Known Drug Allergies Allergy (Verified 01/20/19 13:46) Home Medications: Amlodipine Besylate 5 mg PO DAILY 12/05/14 [History] Aspirin 81 mg PO DAILY 12/05/14 [History] Albuterol Sulfate [Proair Hfa] 1 - 2 puffs IH Q4-6HPRN PRN 11/11/15 [History] Atorvastatin Calcium 80 mg PO DAILY 11/11/15 [History] Bumetanide 1 mg [Bumex 1 mg] 1 mg PO DAILY PRN PRN 11/11/15 [History] Metformin HCl 500 mg [Glucophage 500 MG] 500 mg PO BID 11/11/15 [History] Nitroglycerin 0.4 mg Tablet [Nitrostat 0.4 MG Tablet] 0.4 mg SL UD PRN 01/18 [History] hydroCHLOROthiazide [Hydrochlorothiazide] 12.5 mg PO DAILY 11/11/15 [History] Carvedilol [Coreg] 25 mg PO BID 06/24/17 [History] Gabapentin 400 mg [Neurontin 400 MG] 800 mg PO 06/24/17 [History] Hydrocodone/Acetaminophen [[place] 5-325 Tablet] 1 each PO Q6H PRN 06/24/17 [ History] Hx Tetanus, Diphtheria Vaccination/Date Given: No Hx Influenza Vaccination/Date Given: No Hx Pneumococcal Vaccination/Date Given: No - Past Medical History Pertinent Past Medical History: Yes Neurological History: Peripheral Neuropathy ENT History: No Pertinent History Cardiac History: Myocardial Infarction ([place]) Respiratory History: Bronchitis Endocrine Medical History: Diabetes Type II Musculoskeletal History: Arthritis GI Medical History: Diverticulitis, Diverticulosis History: No Pertinent History Psycho-Social History: Anxiety, Depression, Other Male Reproductive Disorders: No Pertinent History Other Medical History: Chronic pain syndrome, acoholic - Past Surgical History Past Surgical History: Yes Neuro Surgical History: No Pertinent History Cardiac: Cardiac Catheterization, Cardiac Stent Respiratory: No Pertinent History Gastrointestinal: No Pertinent History Genitourinary: No Pertinent History Musculoskeletal: Orthopedic Surgery Male Surgical History: No Pertinent History Other Surgical History: right hand surgery and 3 previous back surgeries. lt arm surgery with skin graft and rt drop foot from post overdose weeks ago. three lumbar spinal surgeries noted. Right hip repair. right knee repair - Social History Smoking Status: Current every day smoker How long have you smoked: 36 Exposure to second hand smoke: No Alcohol Use: Chronic Drug Use: none Patient Lives Alone: Yes Significant Family History: heart disease, diabetes, hypertension - Nursing Vital Signs Nursing Vital Signs: Initial Vital Signs Temperature 98.5 F 01/20/19 13:40 Pulse Rate 113 H 01/20/19 13:40 Respiratory Rate 16 01/20/19 13:40 Blood Pressure 117/89 01/20/19 13:40 O2 Sat by Pulse Oximetry 93 L 01/20/19 13:40 Pain Scale Pain Intensity 7 - Physical Exam SpO2: 93 - Course Nursing assessment & vital signs reviewed: Yes EKG Interpreted by Me: RATE (99), NORMAL AXIS, NORMAL INTERVALS, NORMAL QRS, Other (Old [place] suggeested) Ordered Tests: Active Orders 24 hr Category Date Time Status EKG-ER Only STAT Care 01/20/19 14:00 Active Regular Diet Diet 01/20/19 Dinner Active ACETAMINOPHEN Stat Lab 01/20/19 14:00 Completed CBC W DIFF Stat Lab 01/20/19 14:00 Completed CMP Stat Lab 01/20/19 14:00 Completed ETHYL ALCOHOL Stat Lab 01/20/19 14:00 Completed Hepatic Function Panel Stat Lab 01/20/19 14:00 Completed SALICYLATE Stat Lab 01/20/19 14:00 Completed UA W/RFX UR CULTURE Stat Lab 01/20/19 14:18 Completed Urine Triage Profile Stat Lab 01/20/19 14:07 Completed Medication Summary Generic Name Dose Route Start Last Admin Trade Name Freq PRN Reason Stop Dose Admin Hydrocortisone 0.5 gm 01/20/19 16:29 Cortisone 1% Cream TP 02/19/19 16:28 QID PRN PRN ITCHING Discontinued Medications Generic Name Dose Route Start Last Admin Trade Name Freq PRN Reason Stop Dose Admin Hydrocodone Bitart/Acetaminophen 1 tab 01/20/19 16:57 01/20/19 17:12 [place] 7.5/325 Mg Tab PO 01/20/19 16:58 1 tab STAT ONE Administration Diazepam 5 mg 01/20/19 15:22 01/20/19 15:30 Valium 10 Mg/2 Ml Syringe IV 01/20/19 15:23 5 mg STAT ONE Administration Diazepam Confirm 01/20/19 15:27 Valium 10 Mg/2 Ml Syringe Administered 01/20/19 15:28 Dose 10 mg .ROUTE .STK-MED ONE Sodium Chloride 1,000 mls @ 999 mls/hr 01/20/19 14:00 01/20/19 15:38 Sodium Chloride 0.9% 1000 Ml IV 01/20/19 15:00 Infused .Q1H1M STA Infusion Sodium Chloride Confirm 01/20/19 14:14 Sodium Chloride 0.9% 1000 Ml Administered 01/20/19 14:15 Dose 1,000 mls @ ud .ROUTE .STK-MED ONE Lab/Rad Data: Laboratory Result Diagrams 01/20/19 14:00 01/20/19 14:00 Laboratory Results 01/20/19 01/20/19 01/20/19 Range/Units 14:18 14:07 14:00 WBC (4.0-10.5) K/mm3 RBC (4.1-5.6) M/mm3 Hgb (12.5-18.0) gm/dl Hct (42-50) % MCV (78-100) fl MCH (26-32) pg MCHC (32-36) g/dl RDW (11.5-14.0) % Plt Count (150-450) K/mm3 MPV (6-9.5) fl Gran % (36.0-66.0) % Eos # (Auto) (0-0.5) Absolute Lymphs (auto) (1.0-4.6) Absolute Monos (auto) (0.0-1.3) Lymphocytes % (24.0-44.0) % Monocytes % (0.0-12.0) % Eosinophils % (0.00-5.0) % Basophils % (0.0-0.4) % Absolute Granulocytes (1.4-6.9) Basophils # (0-0.4) Sodium 145 (137-145) mmol/L Potassium 4.3 (3.5-5.1) mmol/L Chloride 107 (98-107) mmol/L Carbon Dioxide 22 (22-30) mmol/L Anion Gap 19.8 H (5-15) MEQ/L BUN 15 (9-20) mg/dL Creatinine 0.65 L (0.66-1.25) mg/dL Estimated GFR > 60.0 ML/MIN Glucose 158 H (74-106) mg/dL Calcium 9.1 (8.4-10.2) mg/dL Total Bilirubin 0.50 (0.2-1.3) mg/dL Direct Bilirubin 0.2 (0.0-0.4) mg/dL AST 24 (17-59) U/L ALT 25 (0-50) U/L Alkaline Phosphatase 125 (38-126) U/L Serum Total Protein 7.9 (6.3-8.2) g/dL Albumin 4.3 (3.5-5.0) g/dL Urine Color YELLOW (YELLOW) Urine Appearance CLEAR (CLEAR) Urine pH 6.0 (5-6) Ur Specific [employer] 1.012 (1.005-1.025) Urine Protein NEGATIVE (Negative) Urine Ketones NEGATIVE (NEGATIVE) Urine Blood NEGATIVE (0-5) David/ul Urine Nitrite NEGATIVE (NEGATIVE) Urine Bilirubin NEGATIVE (NEGATIVE) Urine Urobilinogen NEGATIVE (0-1) mg/dL Ur Leukocyte Esterase NEGATIVE (NEGATIVE) Urine WBC (Auto) 0-2 (0-5) /HPF Urine RBC (Auto) NONE (0-2) /HPF U Epithel Cells (Auto) NONE (FEW) /HPF Urine Bacteria (Auto) NONE (NEGATIVE) /HPF Urine Mucus (Auto) SLIGHT (NEGATIVE) /HPF Urine Culture Reflexed NO (NO) Urine Glucose 50 (NEGATIVE) mg/dL Salicylates < 1.0 L (2-20) mg/dL Urine Opiates Level NEGATIVE (NEGATIVE) Ur Methadone NEGATIVE (NEGATIVE) Acetaminophen < 10 L (10-30) ug/ml Urine Barbiturates NEGATIVE (NEGATIVE) Ur Phencyclidine (PCP) NEGATIVE (NEGATIVE) Urine Amphetamine NEGATIVE (NEGATIVE) U Benzodiazepine Level NEGATIVE (NEGATIVE) Urine Cocaine NEGATIVE (NEGATIVE) Urine Marijuana (THC) NEGATIVE (NEGATIVE) Ethyl Alcohol 236 H (0-10) mg/dL 01/20/19 Range/Units 14:00 WBC 8.8 (4.0-10.5) K/mm3 RBC 5.50 (4.1-5.6) M/mm3 Hgb 17.3 (12.5-18.0) gm/dl Hct 48.9 (42-50) % MCV 88.9 (78-100) fl MCH 31.5 (26-32) pg MCHC 35.4 (32-36) g/dl RDW 15.1 H (11.5-14.0) % Plt Count 286 (150-450) K/mm3 MPV 9.6 H (6-9.5) fl Gran % 57.9 (36.0-66.0) % Eos # (Auto) 0.17 (0-0.5) Absolute Lymphs (auto) 2.92 (1.0-4.6) Absolute Monos (auto) 0.60 (0.0-1.3) Lymphocytes % 33.1 (24.0-44.0) % Monocytes % 6.8 (0.0-12.0) % Eosinophils % 1.9 (0.00-5.0) % Basophils % 0.3 (0.0-0.4) % Absolute Granulocytes 5.10 (1.4-6.9) Basophils # 0.03 (0-0.4) Sodium (137-145) mmol/L Potassium (3.5-5.1) mmol/L Chloride (98-107) mmol/L Carbon Dioxide (22-30) mmol/L Anion Gap (5-15) MEQ/L BUN (9-20) mg/dL Creatinine (0.66-1.25) mg/dL Estimated GFR ML/MIN Glucose (74-106) mg/dL Calcium (8.4-10.2) mg/dL Total Bilirubin (0.2-1.3) mg/dL Direct Bilirubin (0.0-0.4) mg/dL AST (17-59) U/L ALT (0-50) U/L Alkaline Phosphatase (38-126) U/L Serum Total Protein (6.3-8.2) g/dL Albumin (3.5-5.0) g/dL Urine Color (YELLOW) Urine Appearance (CLEAR) Urine pH (5-6) Ur Specific [employer] (1.005-1.025) Urine Protein (Negative) Urine Ketones (NEGATIVE) Urine Blood (0-5) David/ul Urine Nitrite (NEGATIVE) Urine Bilirubin (NEGATIVE) Urine Urobilinogen (0-1) mg/dL Ur Leukocyte Esterase (NEGATIVE) Urine WBC (Auto) (0-5) /HPF Urine RBC (Auto) (0-2) /HPF U Epithel Cells (Auto) (FEW) /HPF Urine Bacteria (Auto) (NEGATIVE) /HPF Urine Mucus (Auto) (NEGATIVE) /HPF Urine Culture Reflexed (NO) Urine Glucose (NEGATIVE) mg/dL Salicylates (2-20) mg/dL Urine Opiates Level (NEGATIVE) Ur Methadone (NEGATIVE) Acetaminophen (10-30) ug/ml Urine Barbiturates (NEGATIVE) Ur Phencyclidine (PCP) (NEGATIVE) Urine Amphetamine (NEGATIVE) U Benzodiazepine Level (NEGATIVE) Urine Cocaine (NEGATIVE) Urine Marijuana (THC) (NEGATIVE) Ethyl Alcohol (0-10) mg/dL - Departure Departure Disposition: Home Clinical Impression: Alcohol abuse Condition: Stable Critical Care Time: No Referrals: ROSANA MURRIETA [Primary Care Provider] - Additional Instructions: Must follow up with primary care provider for any further pain medications and/ or anxiety medications. If you want to stop alcohol you should discuss with your primary care provider who can assist with arrangements.
[2019-01-20 14:29] LABS: ALBUMIN 4.3 g/dL (3.5-5.0); ALKALINE PHOSPHATASE 125 U/L (38-126); ANION GAP 19.8 MEQ/L (5-15); BLOOD UREA NITROGEN 15 mg/dL (9-20); CHLORIDE 107 mmol/L (98-107); Calcium 9.1 mg/dL (8.4-10.2); Carbon Dioxide 22 mmol/L (22-30); Creatinine 1 0.65 mg/dL (0.66-1.25); Direct Bilirubin 0.2 mg/dL (0.0-0.4); ETHYL ALCOHOL 236 mg/dL (0-10); Glucose 158 mg/dL (74-106); Potassium 4.3 mmol/L (3.5-5.1); SGOT/AST 24 U/L (17-59); SGPT/ALT 25 U/L (0-50); SODIUM 145 mmol/L (137-145); Total Protein 7.9 g/dL (6.3-8.2)
[2019-01-20 14:35] LABS: ACETAMINOPHEN < 10 ug/ml (10-30); SALICYLATE < 1.0 mg/dL (2-20)
[2019-01-20 14:38] LABS: Appearance CLEAR (CLEAR); Bilirubin NEGATIVE (NEGATIVE); Blood NEGATIVE Ery/ul (0-5); Glucose 50 mg/dL (NEGATIVE); Ketones NEGATIVE (NEGATIVE); Leukocyte Esterase NEGATIVE (NEGATIVE); Mucus SLIGHT /HPF (NEGATIVE); Nitrite NEGATIVE (NEGATIVE); Protein,Urine Dip NEGATIVE (Negative); Specific Gravity 1.012 (1.005-1.025); Urobilinogen NEGATIVE mg/dL (0-1); WBC 0-2 /HPF (0-5)
[2019-01-20 14:48] LABS: Amphetamine,Urine NEGATIVE (NEGATIVE); Barbiturate,Urine NEGATIVE (NEGATIVE); Benzodiazepine,Urine NEGATIVE (NEGATIVE); Cocaine,Urine NEGATIVE (NEGATIVE); Methadone,Urine NEGATIVE (NEGATIVE); Opiate,Urine NEGATIVE (NEGATIVE); PCP,Urine NEGATIVE (NEGATIVE); THC,Urine NEGATIVE (NEGATIVE)
[2019-01-20] MEDS ORDERED: VALIUM 10 MG/2 ML SYRINGE IV ONE (15:22)
[2019-01-20] MEDS ORDERED: VALIUM 10 MG/2 ML SYRINGE ONE (15:27)
[2019-01-20] MEDS ORDERED: CORTISONE 1% CREAM TP PRN (16:29)
[2019-01-20] MEDS ORDERED: NORCO 7.5/325 MG TAB PO ONE (16:57)
[2019-01-20 18:26] VITALS: BP 154/78; PULSE 88; O2SAT 98
== END 2019-01-20 18:27 | disposition home or self-care (01) ==
LOC: ED 13:29
DX: F10.10 Alcohol abuse, uncomplicated (principal)
CPT/HCPCS: 36000; 36415; 80053; 80076; 80307; 81001; 85025; 93005; 96360; 96374; 99284; G0480; G0481; J3360; A9270-GY